=== PATIENT | female | born 2000 | race Caucasian/White ===

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

== ENCOUNTER 2020-03-12 03:47 | Outpatient (CLI) | payer MEDICAID, SELFPAY ==
[2020-03-12 14:11] LABS: Kit/Specimen SENT
[2020-03-12 14:14] LABS: Abs Immature Grans 0.03 k/cumm (0.0-0.09); Absolute Basophil Count 0.02 k/cumm (0.0-0.2); Absolute Eosinophil Count 0.15 k/cumm (0.0-0.7); Absolute Monocyte Count 0.68 k/cumm (0.11-0.7); Absolute Neutrophil Count 8.78 k/cumm (1.2-6.7); Basophils % 0.2; Eosinophils % 1.3; HCT 37.8 % (36.0-46.0); HGB 12.9 g/dL (12.0-15.5); Immature Grans % 0.3 %; Lymphocytes % 18.5; Mean Corp. HGB Concentration 34.1 g/dL (32.0-36.0); Mean Corpuscular Hemoglobin 29.9 pg (27.0-33.0); Mean Corpuscular Volume 87.7 fL (80-95); Mean Platelet Volume 11.3 fL (8.0-11.0); Monocytes % 5.7; Platelet Count 295 x1000/uL (130-400); RBC 4.31 m/cumm (4.00-5.20); RBC Distribution Width 13.2 % (11.7-14.6); White Blood Cell Count 11.87 k/cumm (4.4-10.8)
[2020-03-12 15:31] LABS: *AMPHETAMINES SCREEN URINE Negative (Negative); *BARBITURATES SCREEN URINE Negative (Negative); *BENZODIAZEPINES SCREEN URINE Negative (Negative); Cannabinoids THC Negative (Negative); Cocaine Screen,Urine Negative (Negative); METHADONE URINE SCREEN Negative (Negative); OPIATES URINE SCREEN Negative (Negative)
[2020-03-12 15:38] LABS: Tricyclic Antidepressants Negative (Negative)
[2020-03-13 11:51] LABS: Rubella IgG Ab (UVM) Positive (See Note); Varicella IgG Antibody Positive (See Note)
[2020-03-13 12:52] LABS: HIV-1/2 Ag & Ab Screen Negative (Negative); Hepatitis C Ab w Rflx HCV PCR Negative (Negative)
[2020-03-13 13:46] LABS: Chlamydia Result Negative (Negative); GC Result Negative (Negative)
[2020-03-13 13:52] LABS: Hepatitis B Surface Ag Negative (Negative)
[2020-03-14 12:09] LABS: Syphilis Total Ab w/Reflex Nonreactive (Nonreactive)
[2020-03-18 01:08] LABS: Result Summary NEGATIVE; Specimen WB Whole Blood
[2020-03-23 01:53] LABS: Buprenorphine Negative
== END 2020-03-12 04:07 ==
PROVIDERS: PCP Pediatrics; Visit Provider Advanced Practice Midwife
DX: Z34.91 Encounter for supervision of normal pregnancy, unspecified, first trimester (principal); Z36.89 Encounter for other specified antenatal screening; Z11.4 Encounter for screening for human immunodeficiency virus [HIV]; Z11.59 Encounter for screening for other viral diseases; Z01.84 Encounter for antibody response examination; Z11.3 Encounter for screening for infections with a predominantly sexual mode of transmission
CPT/HCPCS: 36415; 80307; 86787; 86803; 86850; 86900; 86901; 87340; 87389; 87491; 87591; 81220; 85025; 86762; 86780; 87086

== ENCOUNTER 2020-04-14 21:03 | Outpatient (REF) | payer MEDICAID, SELFPAY | END 2020-04-14 21:23 | LOC: LBN 21:03 | PROVIDERS: PCP Pediatrics; Visit Provider Advanced Practice Midwife | DX: N89.8 Other specified noninflammatory disorders of vagina (principal) | CPT/HCPCS: 87480; 87510; 87660 ==

== ENCOUNTER 2020-05-12 00:23 | Outpatient (CLI) | payer MEDICAID, SELFPAY ==
--- NOTE | 2020-05-12 07:30 | DI.US_ITS ---
EXAM: US OB 2-3 TRIMESTER CLINICAL HISTORY: ,Z34.90 TECHNIQUE: Ultrasound performed using standard protocol. COMPARISON: US US OB DARIO weight from 08/20/2018 FINDINGS: Ob ultrasound was performed utilizing 2nd trimester protocol. biometry is consistent with gest ational age of 20 weeks 1 day and an EDC of September 28, 2020. Placenta is anterior with no evidence of placenta previa. There is visually a normal quantity of amn iotic fluid. anomaly screen is within normal limits as per the attached checklist. heart rate is 143 BPM. IMPRESSION: DATA REPOSITORY:
== END 2020-05-12 00:43 ==
PROVIDERS: PCP Pediatrics; Visit Provider Advanced Practice Midwife
DX: Z34.92 Encounter for supervision of normal pregnancy, unspecified, second trimester (principal)
CPT/HCPCS: 76805

== ENCOUNTER 2020-07-07 02:42 | Outpatient (CLI) | payer MEDICAID, SELFPAY ==
[2020-07-07 12:30] LABS: HGB 12.5 g/dL (11.2-15.7); MCH 31.1 pg (27.0-33.0); MCHC 32.9 % (32.0-36.0); MCV 94.5 fL (80-95); Platelet Count 259 10^3/uL (130-400); RBC 4.02 10^6/uL (3.93-5.22); RDW 13.1 % (11.7-14.6); RDW-SD 45.3 fL; WBC 13.33 10^3/uL (4.4-10.8)
[2020-07-07 12:41] LABS: Glucose,1 Hr (Glucola) 169 mg/dL (80-140)
== END 2020-07-07 03:02 ==
PROVIDERS: PCP Pediatrics; Visit Provider Advanced Practice Midwife
DX: Z34.93 Encounter for supervision of normal pregnancy, unspecified, third trimester (principal); Z3A.28 28 weeks gestation of pregnancy
CPT/HCPCS: 36415; 82950; 85027

== ENCOUNTER 2020-07-20 01:09 | Outpatient (CLI) | payer MEDICAID, SELFPAY ==
[2020-07-20 13:12] LABS: Glucose 1 Hour 185 mg/dL
[2020-07-20 15:24] LABS: Glucose 3 Hour 184 mg/dL
--- NOTE | 2020-07-23 12:45 | W.DIABETESNO ---
Date of service: 07/23/20 Time of Service: 12:45 Diabetes Note NOTE: Spoke with Bella on phone. She reports able to use glucometer and readings wnl. She did not want to discuss diet and GDM. Provided her with my contact info, will meet in person at next [facility] visit on 08/04/20. Time Spent in Nutritional Counseling and Treatment: 5 min on phone
== END 2020-07-20 01:29 ==
PROVIDERS: PCP Pediatrics; Visit Provider Advanced Practice Midwife
DX: R73.09 Other abnormal glucose (principal)
CPT/HCPCS: 36415; 82951

== ENCOUNTER 2020-07-29 11:22 | Outpatient (CLI) | payer MEDICAID, SELFPAY ==
[2020-07-29 15:29] VITALS: BP 100/65; PULSE 115
[2020-07-29 15:43] VITALS: BP 100/65; PULSE 77; TEMP 36.8
[2020-07-29 16:03] VITALS: BP 100/65; PULSE 77; TEMP 36.8
--- NOTE | 2020-07-29 16:03 | W.OBNST ---
Date of service: 07/29/20 Time of Service: 16:03 NST Evaluation Reason for NST Reasons for Nonstress Test: LABOR Gestational Age Gestational Age in Weeks and Days: 31 Weeks and 1Days Test and Monitor Explained Test/Monitor Explained: Test Explained, Monitor Explained and Patient Verbalized Understanding Vital Signs Blood Pressure: 100/65 Pulse: 77 Temperature: 98.2 F NST Information Date on Monitor: 07/29/20 Time on Monitor: 15:25 Date off Monitor: 07/29/20 Time off Monitor: 16:02 Total Time on Monitor: 37 NST Interventions: PO Hydration Contraction Frequency: 0 NST Evaluation Patient States Movement: Decreased FHR Baseline: 145 Variability: Moderate 6-25 bpm Accelerations: 15x15 Decelerations: None NST Results: Reactive Note NST Note NST Reviewed and Verified by: Julia Johnson
[2020-07-29 16:24] LABS: ROM Plus Negative
== END 2020-07-29 16:36 | disposition home or self-care (01) ==
LOC: BCD 11:24 → OBS 14:34
PROVIDERS: PCP Pediatrics; Visit Provider Advanced Practice Midwife
DX: O60.03 Preterm labor without delivery, third trimester (principal); Z3A.31 31 weeks gestation of pregnancy
CPT/HCPCS: 59025; 84112

== ENCOUNTER 2020-08-04 10:36 | Outpatient (CLI) | payer MEDICAID, SELFPAY ==
--- NOTE | 2020-08-04 10:00 | NS.NUTBLAN_ITS ---
Met with Bon in [facility] for initial Diabetic Education session. FADI 09/29/20. Failed 1 hour glucola (169mg/dl) with strong family history of IDDM. Weight gain wnl. Blood sugar log indicates elevated post prandial BS (ranging from 101-232 mg/dl), fasting levels <95mg/dl. MD reviewed BS/Diet log and determined elevated BS mostly due to poor diet choices. Bon to return again next week. If unable to improve post prandial levels, will need bolus insulin with meals. Diet record indicates high intakes of simple carbohydrates. DESCRIPTION/ASSESSMENT: INTERVENTION: Provided education on DM including Hyper/hypoglycemia s/s with action plan for each scenario. Definition and types of CHO with examples, CHO counting, DASH diet materials, DM meal planning and label reading literature. Provided a blood sugar and food record chart and materials to reiterate CHO counting techniques. Reviewed desirable BG levels with with food choices and portions for optimal outcomes. Provided contact information for this RD and encouraged to call with any f/u questions r/t to DM self management. Plan: Bon will email chief writer with food log/BS log in 2 days. Provided education material with meal plans. Will follow up next week for follow up.
== END 2020-08-04 10:56 ==
PROVIDERS: PCP Pediatrics; Visit Provider Nurse Practitioner Family
DX: O24.410 Gestational diabetes mellitus in pregnancy, diet controlled (principal); Z71.3 Dietary counseling and surveillance
CPT/HCPCS: 97802

== ENCOUNTER 2020-08-12 14:28 | Observation (INO) | payer MEDICAID, SELFPAY ==
[2020-08-12] VITALS (7 sets, daily range): BP systolic 109–131; BP diastolic 61–73; PULSE 96–118; RESP 18; TEMP 36.8
[2020-08-12] MEDS: Lactated Ringers 1,000 ML 1000 ML IV (15:16)
[2020-08-12 15:19] LABS: ROM Plus Negative
[2020-08-12] MEDS: Lactated Ringers 500 ML IV (16:18)
--- NOTE | 2020-08-12 16:21 | HPE_ITS ---
Date of service: 08/12/20 Time of Service: 16:21 Assessment and Plan Assessment and plan (1) Risk of labor in third trimester: Status: Acute Assessment and plan: A: 19 yo @ 33 wks, GDM currently being monitored discomforts of vs PTL, r/o UTI, r/o dehydration UA bedside +ketonuria, neg otherwise NST is reactive, irregular contractions per toco P: Recheck cvx in 2-3 hrs by RN as she performed initial exam IV hydration with lactated ringers EFM, observe uterine activity regular diet without sweets CC Urine for C&S fFN deferred after RN's vaginal exam ROM+ is negative Has ultrasound appt in 2 days for S<D, GDM OB-HPI Labor/Delivery History of Present Illness Reason for Visit: R/O PRE TERM LABOR Chief Complaint: Suspected Rupture of Membranes , Associated Signs and Symptoms of Suspected ROM: increased vaginal discharge ; Maternal Discomfort , Associated Signs and Symptoms of Maternal Discomfort: back pain, low abd cramps, increased vaginal discharge, decreased movement ; Decreased Movement , Associated Signs and Symptoms of Decreased Movement: DFM ; Other (Pt reports discomfort all day long, spends her day at home alone with her toddler. Pt called with reports of symptoms @ 1100, advised to come to , pt stated she had to find a ride and childcare, she arrived at 1430.). FADI Calculator Estimated Delivery Date Method Current WG Current Estimate 09/29/20 Ultrasound #1 33w 1d Other Estimates 09/23/20 LMP (Certain) 34w 0d History of Present Expected Delivery Route/Plan - CNM FOB/ - David Hernandez (their second together) Would like water BB no circ Desires immediate Nexplanon Specific Issues/Plan 1. Nausea with vomiting, Zofran 4 mg TID Rx'ed 02/11/20 2. [place] and CF testing drawn 2a. CF carrier screen and [place] negative pt informed 03/20/20 advised to make decision re afp by al 2b. Declines single marker AFP 05/12/20 3. Constipation - resolved 05/12/20 4. Elevated glucola @ 28 wks = 169, 4a. Gestationl Diabetes -3 hr GTT 66. 185, 207, 184 - referred to nutrition, glucometer ordered Review of Systems All systems reviewed & are unremarkable except as noted in HPI and below Respiratory Respiratory: Reports system reviewed and no additional complaints, except as documented Gastrointestinal Comments: reports lower abd cramping Genitourinary Comments: increased watery vaginal discharge today, no itching, recently treated for vaginal yeast Musculoskeletal Comments: reports lower and mid back pain, especially on right side [facility] Medical History (Updated 08/12/20 @ 16:38 by Julia Johnson) Acne ADHD (attention deficit hyperactivity disorder) (04/19/12) Family History (Updated 03/12/20 @ 13:03 by Kell Rossi CNM) Mother Mental disorder depression/anxiety Father Essential hypertension Hyperlipidemia Mental disorder depression/anxiety Diabetes Paternal Grandmother Diabetes Social History (Updated 06/14/18 @ 13:46 by Tiana Caldwell RN) Smoking/Tobacco Use Status: Never Smoking risk assessment performed?: Yes Drug use: Never Seatbelt use: always Helmet use: Yes Drive intox or ride w/intox salesperson driver: No Working smoke detector in home: Yes Fire extinguisher in home: Yes Carbon monox detector in home: Yes Firearms in home: Yes Firearms unloaded and locked: Yes Victim of physical abuse: No Victim of emotional abuse: No Victim of sexual abuse: No History History 2 Para 1 Hx # Term Pregnancies 1 Multiple births 0 Hx # Pregnancies 0 Ectopic pregnancies 0 AB induced 0 Hx Number of Living Children 1 AB spontaneous 0 Past Pregnancies Del. Date GA/Weeks # Outcome Route Wgt Sex Labor Lgth Anesthes ia Location Prov Complic 09/25/18 37 No Successful vaginal 7 lb 1 oz Male 6hrs 13 min. regio nal Julia Johnson CNM Delivery Date: 09/25/18 Patient had IV sedation, PROM, Median episiotomy for prolonged and deepa ble decel; loose nuchal cord x2; cord noted to be 3 feet long Lisa Dyer Home Medications and Allergies Home Medications Medication Instructions Recorded Confirmed Type prenat.vits,pollo,nve-lqaj-ycuok 1 tab PO DAILY 01/22/20 08/12/20 History blood sugar diagnostic #100 ea 07/21/20 08/12/20 Rx blood-glucose meter #1 ea 07/21/20 08/12/20 Rx lancets 28 gauge #100 ea 07/21/20 08/12/20 Rx fluconazole 150 mg tablet 150 mg PO ONCE #1 tab 08/04/20 08/12/20 Rx Allergies Allergy/AdvReac Type Severity Reaction Status Date / Time No Known Allergies Allergy Verified 08/04/20 09:27 Exam Physical Exam Vital signs: Temp Pulse BP 98.2 F 104 H 117/68 08/12/20 14:41 08/12/20 16:03 08/12/20 16:03 Vital Signs Reviewed: Yes Constitutional Constitutional: mild distress, thin and cooperative Detailed Labor and Delivery Exam Laird Score: Cervical Points Exam 0 1 2 3 Dilation Closed 1-2cm 3-4 cm 5-6cm Effacement 0-30% 40-50% 60-70% 80% Consistency Firm Medium Soft Station -3 -2 -1,0 +1,+2 Position Posterior Mid Anterior Amniotic Membrane Status: Intact (ROM+ neg) ROM Plus: Negative Contraction Frequency(min): irregular Contraction Duration(sec): 30-60 seconds Contraction Intensity: Mild Fetus A Heart Rate Baseline: 145 Monitor Accelerations: 15 X 15 Monitor Decelerations: None Variability: Moderate (6-25 BPM) Categories: Category I HEENT Exam HEENT Exam: Normal Neck Exam Neck Exam: Normal Chest/Brest/Axilla Exam Chest Exam: Normal Breast Exam Breast Exam: Not Done Respiratory Exam Respiratory Exam: Normal Cardiovascular Exam Cardiovascular Exam: Normal Abdominal Exam Abdominal Exam: Normal (Gravid, soft, nontender) Exam Exam: Normal Extremities Exam Extremities Exam: Normal Back/Spine/Pelvis Exam Back Exam: Normal (mild tenderness in CVA, right side) Skin Exam Skin Exam: Normal Neurological Exam Neurological Exam: Normal Psychiatric Exam Psychiatric Exam: Normal Results Results Blood Type: O+ Rubella Status: Immune Varicella Immunity: Immune Risk Assessment Risk for Shoulder Dystocia Historical/Initial OB: NEGATIVE FOR: Pelvic Abnormality, Pre- BMI>30, Previous Shoulder Dystocia or Previous Macrosomia Increased Risk?: No Risk for Pre-Eclampsia Daily Dose ASA Indicated: No Yes, if one or more: NEGATIVE FOR: Hx Pre-E/Gest HTN, Chronic HTN, Multiple Gestation, Pre-gestational DM, Renal Disease, Systemic Lupus or APA Syndrome Yes, if 2 or more: NEGATIVE FOR: Nulliparity, Age>= 35 yrs, >10yr btwn pregnancies, BMI>30, ethinicty, Mother/Sister w/ Pre-E or Previous IUGR Risk for Post- Hemorrhage Initial: NEGATIVE FOR: Multiple Gestation, Previous PPH, Known Clotting Defici ency, Grand Multiparity or Anticoagulation At Risk?: No Risks Reviewed Risks Reviewed Upon Admission: Yes
[2020-08-12] MEDS: Acetaminophen 325 MG TAB 650 MG PO (16:29)
--- NOTE | 2020-08-12 16:51 | W.OBNST ---
Date of service: 08/12/20 Time of Service: 16:51 NST Evaluation Reason for NST Reasons for Nonstress Test: DECREASED MOVEMENT Gestational Age Gestational Age in Weeks and Days: 33 Weeks and 1Days Test and Monitor Explained Test/Monitor Explained: Test Explained, Monitor Explained and Patient Verbalized Understanding Vital Signs Blood Pressure: 131/73 Pulse: 104 Temperature: 98.2 F Urine Results Urine Protein: Negative Urine Ketones: Positive Urine Glucose: Negative Urine Blood: Negative NST Information Date on Monitor: 08/12/20 Time on Monitor: 14:35 Date off Monitor: 08/12/20 Time off Monitor: 15:21 Total Time on Monitor: 46 NST Interventions: PO Hydration and IV Fluids NST Evaluation Patient States Movement: Decreased FHR Baseline: 135 Variability: Moderate 6-25 bpm Accelerations: 15x15 Decelerations: None NST Results: Reactive Note NST Note NST Reviewed and Verified by: Julia Johnson
--- NOTE | 2020-08-12 18:21 | W.PM.PROGNOT ---
Date of Service Date of service: 08/12/20 Time of Service: 18:21 Assessment and Plan Assessment and plan (1) Risk of labor in third trimester: Status: Acute Assessment and plan: A: 33 wk multipara, GDM, underweight, constipation, contractions wellbeing verified P: Discussed pt status with Dr. Marrero Will recheck cvx in 3 hrs (@ 1999) Will give dulcolax rectal suppository now Continue IV hydration Urine sent for C&S Subjective Subjective Patient reports: still having pain, nausea and afebrile Interval history since last seen: Pt had some salad for dinner and then felt nauseated, declines anti-emetic medication I'm fine, offered saltine crackers to help settle her stomach. Pt is reporting continuing lower abd pain, some back pain, slight improvement since taking tylenol, also states she has had some sharp pains in her vagina since arrival. Reports need for BM but unable to go when sits on toilet, yet denies recent constipation. Objective Objective Narrative Objective Narrative: Category 1 tracing Irregular but persistent contractions noted per toco, sometimes every 2-3 minutes, sometimes space to every 5-7 minutes. SVE by RN at 1700 and finds possible minor cvx change from previous exam, SVE repeated by CNM for 1.5/thick, soft and posterior, vtx -3, intact membranes, rectum full with firm stool Urine is now cleared of ketones per dipstick @ 1800 Pt has received 2 liters of LR, 3rd liter infusing @ 250 ml/hr Pt ate very little for dinner, no vomiting, reports nausea but declines medication offered
[2020-08-12] MEDS: Bisacodyl 10 MG SUPP PR (18:31)
[2020-08-12] MEDS: Lactated Ringers 1,000 ML 250 ML IV (18:46)
--- NOTE | 2020-08-12 20:17 | DSE_ITS ---
Date of service: 08/12/20 Time of Service: 20:17 DS: Diagnosis Discharge Diagnosis (1) Risk of labor in third trimester: Status: Acute Discharge Plan Disposition Patient Disposition: HOME Condition: Good Discharge Details Reason For Visit: R/O PRE TERM LABOR Admit Date/Time: 08/12/20 14:28 Admit Provider: Julia Johnson Attending Provider: Julia Johnson Primary Care Provider: Jimy Patel Hospital Course Hospital Course: observation 6 hours for labor symptoms, PTL ruled out, discharged home with instructions, f/up in 2 days Home Meds and New Rx's Prescriptions: No Action fluconazole [Diflucan] 150 mg tablet 150 mg PO ONCE Qty: 1 RF: 3 prenat.vits,pollo,[id number]-[id number] Tablet 1 tab PO DAILY RF: 0 (DME) FreeStyle Lite Strips Strip See Rx Instructions .ROUTE .MEDSUPPLY Qty: 100 RF: 2 (DME) lancets [FreeStyle Lancets] 28 gauge misc See Rx Instructions .ROUTE .MEDSUPPLY Qty: 100 RF: 2 (DME) blood-glucose meter [FreeStyle Lite Meter] Kit See Rx Instructions .ROUTE .MEDSUPPLY Qty: 1 RF: 0 Discharge Instructions Additional Instructions: Please keep your ultrasound and doctor appointment this Monday, continue to record your blood sugar 4 times per day and bring the record with you on Monday. Stand Alone Forms: Center Observation Activity:: Activity as Tolerated Equipment/Supplies:: No Equipment Needed Diet:: Normal Diet Discharge Orders Discharge Orders: Discharge Order (Routine); Ordered 08/12/20 Ordered By: Julia Johnson OB:DS Summary Contraception Discussed Contraception Discussed: No, Status at Discharge Functional status at discharge: independent ambulation Overall status at discharge: patient is back to baseline Mental Status: mental status grossly normal Speech and Movement: speech and movement normal Mood: congruent mood Affect: normal affect Time Spent with Patient providing and/or coordinating discharge services: Greater than 30 minutes Exam Physical Exam Vital signs: Temp Pulse Resp BP 98.2 F 96 H 18 109/61 08/12/20 19:33 08/12/20 19:33 08/12/20 19:33 08/12/20 19:33 Constitutional Constitutional: mild distress, thin and cooperative HEENT Exam HEENT Exam: Normal Neck Exam Neck Exam: Normal Respiratory Exam Respiratory Exam: Normal Cardiovascular Exam Cardiovascular Exam: Normal Back/Spine/Pelvis Exam Back Exam: Normal (mild tenderness in CVA, right side) Skin Exam Skin Exam: Normal Neurological Exam Neurological Exam: Normal Psychiatric Exam Psychiatric Exam: Normal [facility] Medical History (Updated 08/12/20 @ 16:38 by Julia Johnson) Acne ADHD (attention deficit hyperactivity disorder) (04/19/12) Family History (Updated 03/12/20 @ 13:03 by Kell Rossi CNM) Mother Mental disorder depression/anxiety Father Essential hypertension Hyperlipidemia Mental disorder depression/anxiety Diabetes Paternal Grandmother Diabetes Social History (Updated 06/14/18 @ 13:46 by Tiana Caldwell RN) Smoking/Tobacco Use Status: Never Smoking risk assessment performed?: Yes Drug use: Never Seatbelt use: always Helmet use: Yes Drive intox or ride w/intox lokie driver: No Working smoke detector in home: Yes Fire extinguisher in home: Yes Carbon monox detector in home: Yes Firearms in home: Yes Firearms unloaded and locked: Yes Victim of physical abuse: No Victim of emotional abuse: No Victim of sexual abuse: No History History 2 Para 1 Hx # Term Pregnancies 1 Multiple births 0 Hx # Pregnancies 0 Ectopic pregnancies 0 AB induced 0 Hx Number of Living Children 1 AB spontaneous 0 Past Pregnancies Del. Date GA/Weeks # Outcome Route Wgt Sex Labor Lgth Anesthes ia Location Prov Complic 09/25/18 37 No Successful vaginal 7 lb 1 oz Male 6hrs 13 min. regio nal Julia Johnson CNM Delivery Date: 09/25/18 Patient had IV sedation, PROM, Median episiotomy for prolonged and audible decel; loose nuchal cord x2; cord noted to be 3 feet long Lisa Dyer DS: Data Vitals/I&O Vitals and I&O: Vital Signs Temperature 98.2 F 08/12/20 19:33 Pulse 96 H 08/12/20 19:33 Pulse Rhythm Regular 08/12/20 19:50 Respiratory Rate 18 08/12/20 19:33 Blood Pressure 109/61 08/12/20 19:33 Oxygen Delivery Method Room Air 08/12/20 14:41 Oxygen Flow Rate 0 08/12/20 14:41 Pain Level 3 08/12/20 17:13 Intake & Output 08/11/20 08/12/20 08/12/20 23:59 11:59 23:59 Intake Total 1500 / 1500 Output Total 1000 / 1000 Balance 500 / 500 Weight 117 lb Intake: IV 1500 / 1500 Output: Urine 1000 / 1000 Data Completed and Pending Labs on day of discharge: Labs from last 24 hours 08/12/20 14:43 Membranes Rupture Negative 08/12/20 17:01 Urine - Clean Catch Urine Culture - Pending Preliminary micro results at discharge 08/12/20 17:01 Urine Culture - Pending Urine - Clean Catch
--- NOTE | 2020-08-14 10:57 | TELEFU_ITS ---
Date of service: 08/14/20 Time of Service: 10:57 Nutritional Follow up NOTE: Met with Bella Cortez in [facility] today. She had elevated OGTT of 169 md/dl last week. Blood sugar log indicates fasting BS <95mg/dl, some mildly elevated post prandial levels but overall GDM in good control with diet. Reviewed importance of following lower carb meal plan with emphasis on complex carbs, lean protein and non starchy vegetables, encouraged exercise- walking daily 15- 20 minutes. Will continue to support and follow. Time Spent in Nutritional Counseling and Treatment: 5 min
== END 2020-08-12 21:10 | disposition home or self-care (01) ==
PROVIDERS: Admitting Provider Advanced Practice Midwife; PCP Pediatrics; Visit Provider Advanced Practice Midwife
DX: O36.8130 Decreased fetal movements, third trimester, not applicable or unspecified (principal); Z3A.33 33 weeks gestation of pregnancy; O60.03 Preterm labor without delivery, third trimester; O24.419 Gestational diabetes mellitus in pregnancy, unspecified control; O26.13 Low weight gain in pregnancy, third trimester; O99.613 Diseases of the digestive system complicating pregnancy, third trimester; O26.893 Other specified pregnancy related conditions, third trimester; K59.00 Constipation, unspecified; R82.4 Acetonuria
CPT/HCPCS: 59025; 84112; 96360; 96361; 99225; 87086; G0378

== ENCOUNTER 2020-08-14 03:53 | Outpatient (CLI) | payer MEDICAID, SELFPAY ==
--- NOTE | 2020-08-14 06:00 | DI.US_ITS ---
EXAM: US OB DARIO WEIGHT CLINICAL HISTORY: S<D at 32 wks, interval growth check,O24.419,O26.843. TECHNIQUE: Transabdominal obstetrical ultrasound performed. COMPARISON: US US OB 2-3 TRIMESTER from 05/12/2020 FINDINGS: Transabdominal obstetrical ultrasound performed. FINDINGS: Number of fetuses: One. position: Cephalic. Placental location: Anterior. No evidence of previa. BIOMETRIC DATA: EFW: 2064 grms 25% Composite Age: 32 weeks 6 days EDC: 10/03/2020 Heart Rate: 135BPM Amniotic fluid index: 13.3 cm. Visually, amount of fluid is within normal limits. IMPRESSION: 1. Single live intrauterine gestation as above. 2. Estimated weight is 2064gms. 3. Amniotic fluid index is 13.3 cm. Visually within normal limits. DATA REPOSITORY:
== END 2020-08-14 04:13 ==
PROVIDERS: PCP Pediatrics; Visit Provider Advanced Practice Midwife
DX: O26.843 Uterine size-date discrepancy, third trimester
CPT/HCPCS: 76816

== ENCOUNTER 2020-08-24 15:20 | Observation (INO) | payer MEDICAID, SELFPAY ==
[2020-08-24 12:43] VITALS: BP 103/63; PULSE 96; RESP 16; TEMP 37.2
[2020-08-24] MEDS: Betamet Acet/Betamet Na Ph Inj. 30 MG/5 ML 12 MG IM (13:45)
[2020-08-24 13:50] VITALS: BP 117/62; PULSE 112; TEMP 36.9
[2020-08-24 13:53] VITALS: BP 117/62; PULSE 112
--- NOTE | 2020-08-24 13:55 | HPE_ITS ---
Date of service: 08/24/20 Time of Service: 13:56 Assessment and Plan Assessment and plan (1) Risk of labor in third trimester: Status: Acute Assessment and plan: A: 19 yo ; 34+6 wks, not in labor though prodromal, intact membranes, category 1 tracing with reactive NST, mild ketonuria P: celestone 12 mg today and repeat in 24 hrs PO hydration now & regular diet Send VPS, GC/CT and GBS Recheck cvx in 2 hrs, will discharge to home if no cervical change OB-HPI Labor/Delivery History of Present Illness Reason for Visit: NST, SSE for r/o ROM, obtain cultures, r/o PTL Chief Complaint: Uterine Contractions (since 729 this morning, pt states she is so ready to just have this baby. Took 2 tylenol prior to arrival in . Denies recent coitus, bleeding, nausea or vomiting.); Suspected Rupture of Membranes , Associated Signs and Symptoms of Suspected ROM: reports sticky vaginal mucous last night, thinner and occasional trickle since 729 this morning, began right when had left for work.. FADI Calculator Estimated Delivery Date Method Current WG Current Estimate 09/29/20 Ultrasound #1 34w 6d Other Estimates 09/23/20 LMP (Certain) 35w 5d History of Present Expected Delivery Route/Plan - CNM FOB/ - David Hernandez (their second together) Would like water BB no circ Desires immediate Nexplanon Specific Issues/Plan Has normal being examination at this 1. Nausea with vomiting, Zofran 4 mg TID Rx'ed 02/11/20 2. [place] and CF testing drawn 2a. CF carrier screen and [place] negative pt informed 03/20/20 advised to make decision re afp by nv.al 2b. Declines single marker AFP 05/12/20 3. Constipation - resolved 05/12/20 4. Gestationl Diabetes -3 hr GTT 66. 185, 207, 184. 08/14/20: Fasting CBGs Nl. Rare 1hr PP over 140. No Rx needed. Assessment: History Reviewed & Current Review of Systems All systems reviewed & are unremarkable except as noted in HPI and below PFSH Medical History (Updated 08/12/20 @ 16:38 by Julia Johnson) Acne ADHD (attention deficit hyperactivity disorder) (04/19/12) Family History (Updated 03/12/20 @ 13:03 by Kell Rossi CNM) Mother Mental disorder depression/anxiety Father Essential hypertension Hyperlipidemia Mental disorder depression/anxiety Diabetes Paternal Grandmother Diabetes Social History (Updated 06/14/18 @ 13:46 by Tiana Caldwell RN) Smoking/Tobacco Use Status: Never Smoking risk assessment performed?: Yes Drug use: Never Seatbelt use: always Helmet use: Yes 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 Date GA/Weeks # Outcome Route Wgt Sex Labor Lgth Anesthes ia Location Prov Complic 09/25/18 37 No Successful vaginal 7 lb 1 oz Male 6hrs 13 min. regio nal Julia Johnson CNM Delivery Date: 09/25/18 Patient had IV sedation, PROM, Median episiotomy for prolonged and audible decel; loose nuchal cord x2; cord noted to be 3 feet long Lisa Dyer Home Medications and Allergies Home Medications Medication Instructions Recorded Confirmed Type prenat.vits,pollo,[id number] 1 tab PO DAILY 01/22/20 08/21/20 History blood sugar diagnostic #100 ea 07/21/20 08/21/20 Rx blood-glucose meter #1 ea 07/21/20 08/21/20 Rx lancets 28 gauge #100 ea 07/21/20 08/21/20 Rx Allergies Allergy/AdvReac Type Severity Reaction Status Date / Time No Known Allergies Allergy Verified 08/21/20 15:37 Exam Physical Exam Vital signs: Temp Pulse Resp BP 99.0 F 112 H 16 117/62 08/24/20 12:43 08/24/20 13:53 08/24/20 12:43 08/24/20 13:53 Vital Signs Reviewed: Yes Constitutional Constitutional: no acute distress, thin and cooperative Detailed Labor and Delivery Exam Dilation: 1.5 Effacement (%): 60 station: -2 Cervix position: mid Consistency: soft Amniotic Membrane Status: Intact Pooling: Negative Nitrazine: Negative Ferning: Absent Monitor Mode: External Contraction Frequency(min): irregular Contraction Intensity: Mild Fetus A Heart Rate Baseline: 130 Monitor Accelerations: 15 X 15 Presentation: Cephalic Categories: Category I Breast Exam Breast Exam: Not Done Respiratory Exam Respiratory Exam: Normal Cardiovascular Exam Cardiovascular Exam: Normal Abdominal Exam Abdominal Exam: Normal Exam Exam: Normal (SSE performed, GC/CT, VPS and GBS collected) Detailed Exam Perineum Description: Normal Extremities Exam Extremities Exam: Normal Back/Spine/Pelvis Exam Pelvis Adequate: Yes Skin Exam Skin Exam: Normal Risk Assessment Risk for Shoulder Dystocia Historical/Initial OB: NEGATIVE FOR: Pelvic Abnormality, Pre- BMI>30, Previous Shoulder Dystocia or Previous Macrosomia Increased Risk?: No Risk for Pre-Eclampsia Daily Dose ASA Indicated: No Yes, if one or more: NEGATIVE FOR: Hx Pre-E/Gest HTN, Chronic HTN, Multiple Gestation, Pre-gestational DM, Renal Disease, Systemic Lupus or APA Syndrome Yes, if 2 or more: NEGATIVE FOR: Nulliparity, Age>= 35 yrs, >10yr btwn pregnancies, BMI>30, ethinicty, Mother/Sister w/ Pre-E or Previous IUGR Risk for Post- Hemorrhage Initial: NEGATIVE FOR: Multiple Gestation, Previous PPH, Known Clotting Deficiency, Grand Multiparity or Anticoagulation At Risk?: No Risks Reviewed Risks Reviewed Upon Admission: Yes
--- NOTE | 2020-08-24 14:13 | W.OBNST ---
Date of service: 08/24/20 Time of Service: 14:13 NST Evaluation Reason for NST Reasons for Nonstress Test: OTHER, SEE COMMENT Reason for NST Other: Rule out labor Gestational Age Gestational Age in Weeks and Days: 34 Weeks and 6Days Test and Monitor Explained Test/Monitor Explained: Test Explained, Monitor Explained and Patient Verbalized Understanding Vital Signs Blood Pressure: 117/62 Pulse: 112 Temperature: 98.4 F Urine Results Urine Protein: Negative Urine Ketones: Positive Urine Glucose: Negative Urine Blood: Negative NST Information Date on Monitor: 08/24/20 Time on Monitor: 12:00 Time off Monitor: 12:20 NST Interventions: PO Hydration and Meal Given NST Evaluation Patient States Movement: Present FHR Baseline: 135 Variability: Moderate 6-25 bpm Accelerations: 15x15 Decelerations: None NST Results: Reactive Note NST Note NST Reviewed and Verified by: Julia Johnson
[2020-08-24 14:14] VITALS: BP 117/62; PULSE 112; TEMP 36.9
--- NOTE | 2020-08-24 15:23 | W.PM.PROGNOT ---
Date of Service Date of service: 08/24/20 Time of Service: 15:23 Assessment and Plan Assessment and plan (1) Risk of labor in third trimester: Status: Acute Assessment and plan: Receiving course of celestone Transportation concerns and maternal anxiety Risk for PTL based on cvx exam, uterine activity/irritability, hx delivery @ 37 wks GDM diet controlled P: Will observe pt overnight for PTL celestone injection tomorrow Plan discharge to home after 2nd injection if no cervical change Regular diet without sweets, FHT auscultation with vital signs (2) Gestational diabetes: Status: Acute Qualifiers: Gestational diabetes mellitus control: diet-controlled Trimester: third trimester Qualified Code(s): O24.410 - Gestational diabetes mellitus in , diet controlled Subjective Subjective Patient reports: still having pain, tolerating liquids well, tolerating a regular diet and voiding w/o difficulty Interval history since last seen: Pt lives 1 hour away, transportation and childcare are not easily available to her, she reports that she is uncomfortable physically with pelvic pain and pressure all the time, is worried about being home alone and not sure she can get back to [facility] tomorrow for her 2nd celestone injection. Exam Narrative Exam Narrative: Cvx rechecked and is unchanged from previous exam @ 1230 today, Objective Last Vital Signs Temp 99.0 F 08/24/20 12:43 Pulse 112 H 08/24/20 13:53 Resp 16 08/24/20 12:43 BP 117/62 08/24/20 13:53 Laboratory Results - last 24 hr Reviewed Pertinent PMH: Yes Objective Narrative Objective Narrative: Pt resting in bed, poor appetite demonstrated though pt denies nausea. Category 1 tracing, irregular and infrequent contractions, vss, afebrile, normotensive
[2020-08-24 16:00] VITALS: BP 111/75; PULSE 114; RESP 20; TEMP 36.9; O2SAT 97
[2020-08-24] MEDS: Acetaminophen 325 MG TAB 650 MG PO (16:12)
[2020-08-24 20:09] VITALS: BP 115/70; PULSE 100; RESP 20; TEMP 36.8
[2020-08-25 07:20] VITALS: BP 116/66; PULSE 106; RESP 20; TEMP 36.8; O2SAT 97
[2020-08-25] MEDS: Docusate Sodium 100 MG CAP PO (07:35)
[2020-08-25] MEDS: Acetaminophen 325 MG TAB 650 MG PO (07:35)
[2020-08-25] MEDS: Prenatal Multivitamin w/CA,FE TAB 1 TAB PO (07:35)
[2020-08-25 09:27] LABS: Hemoglobin A1C 4.9 % (<5.7)
[2020-08-25 09:29] VITALS: BP 110/56; PULSE 118
--- NOTE | 2020-08-25 09:56 | W.PM.PROGNOT ---
Date of Service Date of service: 08/25/20 Time of Service: 09:57 Assessment and Plan Assessment and plan (1) Risk of labor in third trimester: Status: Acute Assessment and plan: A: 19 yo , GDM, elevated sugars x3 during observation period Not in labor, no cvx change, Discomforts of multiparous near term gestation P: Hgb A1C drawn and nml Pt fitted with abdominal binder for comfort 2nd celestone due at 1400 Will review sugars with Dr. Marrero Expect to discharge pt to home this afternoon Has scheduled appt in 3 days with dietetics director Subjective Subjective Patient reports: still having pain, tolerating a regular diet and bowel movement Interval history since last seen: Pt states she woke up at 0230 with increased pain, says her pain is everywhere and constant but especially in lower abd, reports pink tinge to vaginal mucous on post void wipes today. Pt eating a carb-controlled diet, ate well at dinner and for breakfast. No nausea, no vomiting, no diarrhea, nml BM today. Is taking tylenol but does not feel it is helpful. Exam Narrative Exam Narrative: Abd soft and nontender to palpation Category 1 EFM tracing this morning, Contractions q 5-6 minutes per toco SVE performed and is unchanged from yesterday's exam, no blood visible on exam glove Objective Last Vital Signs Temp 98.3 F 08/24/20 20:09 Pulse 118 H 08/25/20 09:29 Resp 20 08/24/20 20:09 BP 110/56 L 08/25/20 09:29 Pulse Ox 97 08/24/20 16:00 Laboratory Results - last 24 hr 08/24/20 08/25/20 12:45 08:32 Hemoglobin A1c 4.9 Chlamydia DNA Probe Cancelled Chlamydia/GC DNA Source Cancelled N.gonorrhoeae DNA Probe Cancelled Reviewed Pertinent PMH: Yes Objective Narrative Objective Narrative: Pt sitting in bed watching TV, resting in room Nurses report she slept well last night without medication, tolerating carb controlled diet well Abd soft and nontender to palpation Category 1 EFM tracing this morning, Contractions q 5-6 minutes per toco SVE performed and is unchanged from yesterday's exam, no blood visible on exam glove 1 hr PP sugar last night 147, fasting 101 today, 1 hr PP after breakfast 128 Afebrile, normotensive Hgb A1C 4.9 today VPS was negative x3 GBS and GC/CT pending
[2020-08-25] MEDS: Betamet Acet/Betamet Na Ph Inj. 30 MG/5 ML 12 MG IM (13:49)
--- NOTE | 2020-08-25 14:02 | DSE_ITS ---
Date of service: 08/25/20 Time of Service: 14:02 DS: Diagnosis Discharge Diagnosis (1) Risk of labor in third trimester: Status: Acute Asessment and Plan: Celestone course completed Blood sugars discussed with Dr. 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 Sx of labor and ROM reviewed with pt Written instructions given to pt Discharge Plan Disposition Patient Disposition: HOME Condition: Good Discharge Details Reason For Visit: LABOR RISK AT 34-35 WKS Admit Date/Time: 08/24/20 15:20 Admit Provider: Julia Johnson Attending Provider: Julia Johnson Primary Care Provider: Jimy Patel Hospital Course Hospital Course: 24 hour observation, no labor, celestone course completed Home Meds and New Rx's Prescriptions: No Action prenat.vits,pollo,[id number] Tablet 1 tab PO DAILY RF: 0 (DME) FreeStyle Lite Strips Strip See Rx Instructions .ROUTE .MEDSUPPLY Qty: 100 RF: 2 (DME) lancets [FreeStyle Lancets] 28 gauge misc See Rx Instructions .ROUTE .MEDSUPPLY Qty: 100 RF: 2 (DME) blood-glucose meter [FreeStyle Lite Meter] Kit See Rx Instructions .ROUTE .MEDSUPPLY Qty: 1 RF: 0 Discharge Instructions Care Plan Goals: Keep your appointment on Monday as already scheduled, check you blood sugar 4x/day and record them in your notebook, remember to bring the notebook to you appointments. Stand Alone Forms: Center Observation Activity:: Activity as Tolerated Equipment/Supplies:: No Equipment Needed Diet:: Normal Diet Discharge Orders Discharge Orders: Discharge Order (Routine); Ordered 08/25/20 Ordered By: Julia Johnson OB:DS Summary Contraception Discussed Contraception Discussed: No (n/a, undelivered), Status at Discharge Functional status at discharge: independent ambulation Overall status at discharge: patient is back to baseline Mental Status: mental status grossly normal Speech and Movement: speech and movement normal and speech clear Mood: congruent mood Affect: blunted Exam Physical Exam Vital signs: Temp Pulse Resp BP Pulse Ox 98.2 F 118 H 20 110/56 L 97 08/25/20 07:20 08/25/20 09:29 08/25/20 07:20 08/25/20 09:29 08/25/20 07:20 Vital Signs Reviewed: Yes Constitutional Constitutional: no acute distress, thin and cooperative Respiratory Exam Respiratory Exam: Normal Cardiovascular Exam Cardiovascular Exam: Normal Abdominal Exam Abdomen: Other (soft and nontender) Comments: Gravid Rectal Exam Rectal Exam: Not Done Extremities Exam Extremity Exam: Normal Skin Exam Skin Exam: Normal [facility] Medical History (Updated 08/24/20 @ 15:28 by Julia Johnson) Acne ADHD (attention deficit hyperactivity disorder) (04/19/12) Family History (Updated 03/12/20 @ 13:03 by Kell Rossi CNM) Mother Mental disorder depression/anxiety Father Essential hypertension Hyperlipidemia Mental disorder depression/anxiety Diabetes Paternal Grandmother Diabetes Social History (Updated 06/14/18 @ 13:46 by Tiana Caldwell RN) Smoking/Tobacco Use Status: Never Smoking risk assessment performed?: Yes Alcohol Intake: never Drug use: Never Substance use type: does not use Details: drinks occasionaly but not with pregencancy Seatbelt use: always Helmet use: Yes 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 Date GA/Weeks # Outcome Route Wgt Sex Labor Lgth Anesthes ia Location Prov Complic 09/25/18 37 No Successful vaginal 7 lb 1 oz Male 6hrs 13 min. regio nal Julia Johnson CNM Delivery Date: 09/25/18 Patient had IV sedation, PROM, Median episiotomy for prolonged and audible decel; loose nuchal cord x2; cord noted to be 3 feet long Lisa Dyer DS: Data Vitals/I&O Vitals and I&O: Vital Signs Temperature 98.2 F 11/17/20 07:20 Pulse 118 H 08/25/20 09:29 Pulse Rhythm Regular 08/25/20 07:20 Respiratory Rate 20 08/25/20 07:20 Respiratory Effort Non-Labored 08/25/20 07:20 Respiratory Depth Normal 08/25/20 07:20 Respiratory Pattern Normal 08/25/20 07:20 Blood Pressure 110/56 L 08/25/20 09:29 Blood Pressure Mean 82 08/25/20 07:20 Pulse Oximetry 97 08/25/20 07:20 Oxygen Delivery Method Room Air 08/24/20 16:00 Oxygen Flow Rate 0 08/24/20 16:00 Pain Level 10 08/25/20 07:35 Comment 08/24/20 16:00 Intake & Output 08/24/20 08/25/20 08/25/20 23:59 11:59 23:59 Other: Urine Appearance Clear Comment Pt up to void; states there was pink on the toilet paper; No hat to measure Data Completed and Pending Labs on day of discharge: Labs from last 24 hours 08/25/20 08:32 Hemoglobin A1c 4.9 08/24/20 12:45 Vaginal/Rectal Group B Streptococcus Screen (TERELL) - Pending Preliminary micro results at discharge 08/24/20 12:45 Group B Streptococcus Screen (TERELL) - Pending Vaginal/Rectal
[2020-08-26 06:28] LABS: Chlamydia amplified RNA Negative (Negative); N gonorrhoeae amplified RNA Negative (Negative); Source CERVIX
--- NOTE | 2020-08-28 15:30 | W.DIABETESNO ---
Date of service: 08/28/20 Time of Service: 15:30 Diabetes Note NOTE: Met with Bon at [facility] today. She reports this week that her fasting sugars are running 76-90mg/dl, post prandials running 124-142 mg/dl. Blood sugar control well controlled with diet at this time. Will continue to follow and support. Time Spent in Nutritional Counseling and Treatment: 10 min face to face
== END 2020-08-25 14:10 | disposition home or self-care (01) ==
LOC: OBS 08-26 10:52 → BCD 08-26 10:52
PROVIDERS: Admitting Provider Advanced Practice Midwife; PCP Pediatrics; Visit Provider Advanced Practice Midwife
DX: O60.03 Preterm labor without delivery, third trimester (principal); O24.410 Gestational diabetes mellitus in pregnancy, diet controlled; Z3A.34 34 weeks gestation of pregnancy; O28.8 Other abnormal findings on antenatal screening of mother; Z03.71 Encounter for suspected problem with amniotic cavity and membrane ruled out; Z36.85 Encounter for antenatal screening for Streptococcus B
CPT/HCPCS: 36415; 59025; 87491; 87591; 96372; 99225; 83036; 87081; 87480; 87510; 87660; G0378; J0702

== ENCOUNTER 2020-08-28 22:22 | Outpatient (REF) | payer MEDICAID, SELFPAY ==
[2020-08-28 21:01] LABS: *AMPHETAMINES SCREEN URINE Negative (Negative); *BARBITURATES SCREEN URINE Negative (Negative); *BENZODIAZEPINES SCREEN URINE Negative (Negative); Cannabinoids THC Negative (Negative); Cocaine Screen,Urine Negative (Negative); METHADONE URINE SCREEN Negative (Negative); OPIATES URINE SCREEN Negative (Negative)
[2020-08-28 21:02] LABS: Tricyclic Antidepressants Negative (Negative)
[2020-09-04 09:23] LABS: Buprenorphine Negative; Norbuprenorphine Negative
== END 2020-08-28 22:42 ==
LOC: LBN 22:22
PROVIDERS: PCP Pediatrics; Visit Provider Advanced Practice Midwife
DX: Z34.93 Encounter for supervision of normal pregnancy, unspecified, third trimester (principal)
CPT/HCPCS: 80307

== ENCOUNTER 2020-09-01 08:30 | Observation (INO) | payer MEDICAID, SELFPAY ==
[2020-09-01 10:06] VITALS: BP 128/72; PULSE 136; RESP 20; TEMP 36.9
[2020-09-01 10:09] VITALS: BP 128/72; PULSE 136; RESP 20; TEMP 36.6
[2020-09-01 10:15] VITALS: BP 128/72; PULSE 136; TEMP 36.9
--- NOTE | 2020-09-01 10:39 | HPE_ITS ---
Date of service: 09/01/20 Time of Service: 10:39 Assessment and Plan Assessment and plan (1) Uterine contractions: Status: Acute Assessment and plan: SVE deferred pending POM plus results. (2) : Status: Acute Assessment and plan: Will perform SVE pending POM plus results. OB-HPI Labor/Delivery History of Present Illness Reason for Visit: PELVIC AND BACK DISCOMFORT Chief Complaint: Uterine Contractions; Suspected Rupture of Membranes , Associated Signs and Symptoms of Suspected ROM: none ; Maternal Discomfort , Associated Signs and Symptoms of Maternal Discomfort: no. FADI Calculator Estimated Delivery Date Method Current WG Current Estimate 09/29/20 Ultrasound #1 36w 0d Other Estimates 09/23/20 LMP (Certain) 36w 6d Comments: Bella Cortez called yesterday with low back, abdominal discomfort and leaking fluid. She was instructed to come in but she did not come in as her symptoms did not increase. She called this morning at 0715 and reported that her discomfort was worse. She reports that she is still leaking fluid//discharge. She does admit to recent intercourse. She denies bleeding. History of Present Expected Delivery Route/Plan - CNM FOB/ - David Hernandez (their second together) Would like water BB no circ Desires immediate Nexplanon GBS negative Specific Issues/Plan Has normal being examination at this 1. Nausea with vomiting, Zofran 4 mg TID Rx'ed 02/11/20 2. [place] and CF testing drawn 2a. CF carrier screen and [place] negative pt informed 03/20/20 advised to make decision re afp by nv.al 2b. Declines single marker AFP 05/12/20 3. Constipation - resolved 05/12/20 4. Gestationl Diabetes -3 hr GTT 66. 185, 207, 184. 08/14/20: Fasting CBGs Nl. Rare 1hr PP over 140. No Rx needed. Assessment: History Reviewed & Current Review of Systems Gastrointestinal Gastrointestinal: Reports constipation Comments: complained of rectal pressure yesterday but it went away after she had a BM Genitourinary Comments: leaking small amounts of fluid. Has had intercourse in the past 24 hours. [facility] Medical History (Updated 09/01/20 @ 10:43 by Kell Rossi CNM) Acne ADHD (attention deficit hyperactivity disorder) (04/19/12) Family History (Updated 03/12/20 @ 13:03 by Kell Rossi CNM) Mother Mental disorder depression/anxiety Father Essential hypertension Hyperlipidemia Mental disorder depression/anxiety Diabetes Paternal Grandmother Diabetes Social History (Updated 06/14/18 @ 13:46 by Tiana Caldwell RN) Smoking/Tobacco Use Status: Never Smoking risk assessment performed?: Yes Alcohol Intake: never Drug use: Never Substance use type: does not use Details: drinks occasionaly but not with pregencancy Seatbelt use: always Helmet use: Yes 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 Date GA/Weeks # Outcome Route Wgt Sex Labor Lgth Anesthes ia Location Prov Complic 09/25/18 37 No Successful vaginal 7 lb 1 oz Male 6hrs 13 min. regio peggy galeas CNM Delivery Date: 09/25/18 Patient had IV sedation, PROM, Median episiotomy for prolonged and audible decel; loose nuchal cord x2; cord noted to be 3 feet long Lisa Dyer Home Medications and Allergies Home Medications Medication Instructions Recorded Confirmed Type prenat.vits,pollo,iwp-ejky-cfhkw 1 tab PO DAILY 01/22/20 08/21/20 History blood sugar diagnostic #100 ea 07/21/20 08/21/20 Rx blood-glucose meter #1 ea 07/21/20 08/21/20 Rx lancets 28 gauge #100 ea 07/21/20 08/21/20 Rx Allergies Allergy/AdvReac Type Severity Reaction Status Date / Time No Known Allergies Allergy Verified 08/28/20 15:13 Exam Physical Exam Vital signs: Temp Pulse Resp BP 97.9 F 136 H 20 128/72 09/01/20 10:09 09/01/20 10:09 09/01/20 10:09 09/01/20 10:09 Constitutional Constitutional: no acute distress Detailed Labor and Delivery Exam Laird Score: Cervical Points Exam 0 1 2 3 Dilation Closed 1-2cm 3-4 cm 5-6cm Effacement 0-30% 40-50% 60-70% 80% Consistency Firm Medium Soft Station -3 -2 -1,0 +1,+2 Position Posterior Mid Anterior Amniotic Membrane Status: Intact Pooling: Negative Nitrazine: Negative Contraction Intensity: Mild Fetus A Heart Rate Baseline: 140 Monitor Accelerations: 15 X 15 Monitor Decelerations: None Variability: Moderate (6-25 BPM) Presentation: Cephalic Categories: Category I Risk Assessment Risk for Shoulder Dystocia Historical/Initial OB: NEGATIVE FOR: Pelvic Abnormality, Pre- BMI>30, Previous Shoulder Dystocia or Previous Macrosomia Increased Risk?: No Risk for Pre-Eclampsia Daily Dose ASA Indicated: No Yes, if one or more: NEGATIVE FOR: Hx Pre-E/Gest HTN, Chronic HTN, Multiple Gestation, Pre-gestational DM, Renal Disease, Systemic Lupus or APA Syndrome Yes, if 2 or more: NEGATIVE FOR: Nulliparity, Age>= 35 yrs, >10yr btwn pregnancies, BMI>30, ethinicty, Mother/Sister w/ Pre-E or P revious IUGR Risk for Post- Hemorrhage Initial: NEGATIVE FOR: Multiple Gestation, Previous PPH, Known Clotting Deficiency, Grand Multiparity or Anticoagulation At Risk?: No Risks Reviewed Risks Reviewed Upon Admission: Yes
[2020-09-01 11:05] LABS: ROM Plus Negative
[2020-09-01 11:18] VITALS: BP 116/71; PULSE 123; RESP 20; TEMP 36.8
--- NOTE | 2020-09-01 12:02 | W.PM.DS.N ---
Date of service: 09/01/20 Time of Service: 12:02 DS: Diagnosis Discharge Diagnosis (1) Uterine contractions: Status: Acute Asessment and Plan: Bon had intercourse last night despite experiencing discomfort and contractions all day. ROM plus negative. White creamy discharge noted at introitus. Contractions are irregular and mild. SVE performed. Cervix long/-2 station/vertex presenting. There was marked firm stool in rectum noted. Bella Cortez indicated that she would like the baby to come now. We discussed concerns about near- . I recommended a stool softener, rest and pelvic rest for one week until 37 weeks. I also recommended tylenol for discomfort and benadry PRN at for sleep. Signs of labor were reviewed. RTO 09/07 for visit at [facility]. (2) : Status: Acute Discharge Plan Disposition Patient Disposition: HOME Condition: Good Discharge Details Reason For Visit: PELVIC AND BACK DISCOMFORT Admit Date/Time: 09/01/20 08:30 Admit Provider: Kell Rossi Attending Provider: Kell Rossi Primary Care Provider: Jimy Patel Home Meds and New Rx's Prescriptions: No Action prenat.vits,pollo,xki-rlan-ptaoz Tablet 1 tab PO DAILY RF: 0 (DME) FreeStyle Lite Strips Strip See Rx Instructions .ROUTE .MEDSUPPLY Qty: 100 RF: 2 (DME) lancets [FreeStyle Lancets] 28 gauge misc See Rx Instructions .ROUTE .MEDSUPPLY Qty: 100 RF: 2 (DME) blood-glucose meter [FreeStyle Lite Meter] Kit See Rx Instructions .ROUTE .MEDSUPPLY Qty: 1 RF: 0 Discharge Instructions Activity:: Activity as Tolerated Equipment/Supplies:: No Equipment Needed Diet:: As Tolerated Discharge Orders Discharge Orders: Discharge Order (Routine); Ordered 09/01/20 Ordered By: Kell Rossi Discharge Data Discharge Date/Time-TO BE ENTERED AT DEPARTURE: 09/01/20 11:35 DS: Summary Status at Discharge Functional status at discharge: independent ambulation Overall status at discharge: patient is back to baseline Mental Status: mental status grossly normal Speech and Movement: speech and movement normal Mood: congruent mood Affect: blunted Exam Psych Mental Status: mental status grossly normal Speech and Movement: speech and movement normal Mood: congruent mood Affect: blunted DS: Data Vitals/I&O Vitals and I&O: Vital Signs Temperature 98.2 F 09/01/20 11:18 Pulse 123 H 09/01/20 11:18 Pulse Rhythm Regular 09/01/20 10:09 Respiratory Rate 09/01/20 11:18 Blood Pressure 116/71 09/01/20 11:18 Oxygen Delivery Method Room Air 09/01/20 10:09 Oxygen Flow Rate 0 09/01/20 10:09 Pain Level 7 09/01/20 10:09 Data Completed and Pending Labs on day of discharge: Labs from last 24 hours 09/01/20 10:20 Membranes Rupture Negative [facility] Medical History (Updated 09/01/20 @ 10:43 by Kell Rossi CNM) Acne ADHD (attention deficit hyperactivity disorder) (04/19/12) Family History (Updated 03/12/20 @ 13:03 by Kell Rossi CNM) Mother Mental disorder depression/anxiety Father Essential hypertension Hyperlipidemia Mental disorder depression/anxiety Diabetes Paternal Grandmother Diabetes Social History (Updated 06/14/18 @ 13:46 by Tiana Caldwell RN) Smoking/Tobacco Use Status: Never Smoking risk assessment performed?: Yes Alcohol Intake: never Drug use: Never Substance use type: does not use Details: drinks occasionaly but not with pregencancy Seatbelt use: always Helmet use: Yes 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 Date GA/Weeks # Outcome Route Wgt Sex Labor Lgth Anesthesia Location Prov Complic 09/25/18 37 No Successful vaginal 7 lb 1 oz Male 6hrs 13 min. regional Julia Johnson CNM Delivery Date: 09/25/18 Patient had IV sedation, PROM, Median episiotomy for prolonged and audible decel; loose nuchal cord x2; cord noted to be 3 feet long Lisa Dyer
--- NOTE | 2020-09-01 15:22 | W.OBNST ---
Date of service: 09/01/20 Time of Service: 12:00 NST Evaluation Reason for NST Reasons for Nonstress Test: OTHER, SEE COMMENT Reason for NST Other: Rule out labor Gestational Age Gestational Age in Weeks and Days: 36 Weeks and 0Days Test and Monitor Explained Test/Monitor Explained: Test Explained, Monitor Explained and Patient Verbalized Understanding Vital Signs Blood Pressure: 128/72 Pulse: 136 Temperature: 98.4 F NST Information Date on Monitor: 09/01/20 Time on Monitor: 10:06 Date off Monitor: 09/01/20 Time off Monitor: 11:15 Total Time on Monitor: 69 NST Interventions: PO Hydration NST Evaluation Patient States Movement: Present FHR Baseline: 145 Variability: Moderate 6-25 bpm Accelerations: 15x15 Decelerations: None NST Results: Reactive Note NST Note Note: see observation H and P NST Reviewed and Verified by: Kell Rossi
[2020-09-01 15:23] VITALS: BP 128/72; PULSE 136; TEMP 36.9
== END 2020-09-01 11:35 | disposition home or self-care (01) ==
PROVIDERS: Admitting Provider Advanced Practice Midwife; PCP Pediatrics; Visit Provider Advanced Practice Midwife
DX: O47.03 False labor before 37 completed weeks of gestation, third trimester (principal); O24.419 Gestational diabetes mellitus in pregnancy, unspecified control; Z3A.36 36 weeks gestation of pregnancy
CPT/HCPCS: 59025; 84112; 99239; G0378

== ENCOUNTER 2020-09-07 15:08 | Outpatient (CLI) | payer MEDICAID, SELFPAY ==
[2020-09-07 15:16] VITALS: BP 110/71; PULSE 109; TEMP 36.8
[2020-09-07 16:35] VITALS: BP 110/71; PULSE 109; TEMP 36.8
--- NOTE | 2020-09-07 16:35 | W.OBNST ---
Date of service: 09/07/20 Time of Service: 16:35 NST Evaluation Reason for NST Reasons for Nonstress Test: DECREASED MOVEMENT Gestational Age Gestational Age in Weeks and Days: 36 Weeks and 6Days Test and Monitor Explained Test/Monitor Explained: Patient Verbalized Understanding Vital Signs Blood Pressure: 110/71 Pulse: 109 Temperature: 98.2 F NST Information Date on Monitor: 09/07/20 Time on Monitor: 15:09 Date off Monitor: 09/07/20 Time off Monitor: 16:23 Total Time on Monitor: 74 NST Interventions: PO Hydration NST Evaluation Patient States Movement: Decreased FHR Baseline: 145 Variability: Moderate 6-25 bpm Accelerations: 15x15 Decelerations: None NST Results: Reactive Note NST Note NST Reviewed and Verified by: Julia Johnson
== END 2020-09-07 16:30 | disposition home or self-care (01) ==
LOC: BCD 15:10 → OBS 15:39
PROVIDERS: PCP Pediatrics; Visit Provider Advanced Practice Midwife
DX: O36.8130 Decreased fetal movements, third trimester, not applicable or unspecified (principal); Z3A.36 36 weeks gestation of pregnancy
CPT/HCPCS: 59025

== ENCOUNTER 2020-09-09 20:18 | Observation (INO) | payer MEDICAID, SELFPAY ==
[2020-09-09 20:34] VITALS: BP 139/72; PULSE 114
[2020-09-09 20:39] VITALS: BP 139/72; PULSE 114; RESP 16; TEMP 36.8
--- NOTE | 2020-09-09 22:02 | W.PM.OBHPL1 ---
Date of service: 09/09/20 Time of Service: 21:00 Assessment and Plan Assessment and plan (1) Uterine contractions: Status: Acute Assessment and plan: Exam by RN. Will assess for 2 hours and have RN recheck SVE for change. PO hydration provided. urine dip neg with trace of leukocytes. OB-HPI Labor/Delivery History of Present Illness Reason for Visit: RULE OUT TERM LABOR Chief Complaint: Uterine Contractions. FADI Calculator Estimated Delivery Date Method Current WG Current Estimate 09/29/20 Ultrasound #1 37w 1d Other Estimates 09/23/20 LMP (Certain) 38w 0d Comments: Reyes reported strong contractions at home. She also felt shaky and had pressure which felt like to baby was coming. Reyes is a poor historian regarding symptoms she is experiencing and has had multiple admissions and labor evaluations for reported leaking of fluid, decreased movement and labor since 31 weeks gestation. She presents with discomfort and regular contractions every 3 minutes, History of Present Expected Delivery Route/Plan - CNM FOB/ - David Hernandez (their second together) Would like water BB no circ Desires immediate Nexplanon GBS negative Specific Issues/Plan 1. Nausea with vomiting, Zofran 4 mg TID Rx'ed 02/11/20 2. [place] and CF testing drawn 2a. CF carrier screen and [place] negative pt informed 03/20/20 advised to make decision re afp by nv.al 2b. Declines single marker AFP 05/12/20 3. Constipation - resolved 05/12/20 4. Gestational Diabetes -3 hr GTT 66. 185, 207, 184. 08/14/20: Fasting CBGs nml. Rare 1hr PP over 140. No Rx needed. 5. Seen for PTL on BC, [place]estone complete @ [address] wks, [address]/GC neg, VPS neg and GBS neg PFSH Medical History (Updated 09/09/20 @ 22:25 by Kell Rossi CNM) Acne ADHD (attention deficit hyperactivity disorder) (04/19/12) Family History (Updated 03/12/20 @ 13:03 by Kell Rossi CNM) Mother Mental disorder depression/anxiety Father Essential hypertension Hyperlipidemia Mental disorder depression/anxiety Diabetes Paternal Grandmother Diabetes Social History (Updated 06/14/18 @ 13:46 by Tiana Caldwell, MARYANNE) Smoking/Tobacco Use Status: Never Smoking risk assessment performed?: Yes Alcohol Intake: never Drug use: Never Substance use type: does not use Details: drinks occasionaly but not with pregencancy Seatbelt use: always Helmet use: Yes Drive intox or ride 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 Date GA/Weeks # Outcome Route Wgt Sex Labor Lgth Anesthesia Location Prov Complic 09/25/18 37 No Successful vaginal 7 lb 1 oz Male 6hrs 13 min. regional Julia Johnson CNM Delivery Date: 09/25/18 Patient had IV sedation, PROM, Median episiotomy for prolonged and audible decel; loose nuchal cord x2; cord noted to be 3 feet long Lisa Dyer Home Medications and Allergies Home Medications Medication Instructions Recorded Confirmed Type prenat.vits,pollo,kib-skuy-byzvy 1 tab PO DAILY 01/22/20 08/21/20 History blood sugar diagnostic #100 ea 07/21/20 08/21/20 Rx blood-glucose meter #1 ea 07/21/20 08/21/20 Rx lancets 28 gauge #100 ea 07/21/20 08/21/20 Rx Allergies Allergy/AdvReac Type Severity Reaction Status Date / Time No Known Allergies Allergy Verified 09/07/20 14:41 Exam Physical Exam Vital signs: Temp Pulse Resp BP 98.2 F 114 H 16 139/72 09/09/20 20:39 09/09/20 20:39 09/09/20 20:39 09/09/20 20:39 Vital Signs Reviewed: Yes Constitutional Constitutional: mild distress Detailed Labor and Delivery Exam Dilation: 2 Effacement (%): 50 station: -2 Cervix position: mid Consistency: medium Laird Score: Cervical Points Exam 0 1 2 3 Dilation Closed 1-2cm 3-4 cm 5-6cm Effacement 0-30% 40-50% 60-70% 80% Consistency Firm Medium Soft Station -3 -2 -1,0 +1,+2 Position Posterior Mid Anterior Amniotic Membrane Status: Intact Contraction Intensity: Mild/Moderate Comments: contractions mild to mod to palpation and patient feels discomfort at th etop of her abdomen Fetus A Heart Rate Baseline: 140 Monitor Accelerations: 15 X 15 Monitor Decelerations: None Variability: Moderate (6-25 BPM) Presentation: Cephalic Categories: Category I Respiratory Exam Respiratory Exam: Normal Cardiovascular Exam Cardiovascular Exam: Normal Abdominal Exam Abdominal Exam: Normal Exam Exam: Normal Extremities Exam Extremities Exam: Normal Back/Spine/Pelvis Exam Pelvis Adequate: Yes Skin Exam Skin Exam: Abnormal (facial acne) Psychiatric Exam Psychiatric Exam: Normal Risk Assessment Risk for Shoulder Dystocia Historical/Initial OB: NEGATIVE FOR: Pelvic Abnormality, Pre- BMI>30, Previous Shoulder Dystocia or Previous Macrosomia Risk for Pre-Eclampsia Yes, if one or more: NEGATIVE FOR: Hx Pre-E/Gest HTN, Chronic HTN, Multiple Gestation, Pre-gestational DM, Renal Disease, Systemic Lupus or APA Syndrome Yes, if 2 or more: NEGATIVE FOR: Nulliparity, Age>= 35 yrs, >10yr btwn pregnancies, BMI>30, ethinicty, Mother/Sister w/ Pre-E or Previous IUGR Risk for Post- Hemorrhage Initial: NEGATIVE FOR: Multiple Gestation, Previous PPH, Known Clotting Deficiency, Grand Multiparity or Anticoagulation Risks Reviewed Risks Reviewed Upon Admission: Yes
--- NOTE | 2020-09-09 22:54 | DSE_ITS ---
Date of service: 09/09/20 Time of Service: 22:54 DS: Diagnosis Discharge Diagnosis (1) Uterine contractions: Status: Acute Asessment and Plan: SVE by RN. No change in cervix. Reviewed signs of labor. Discharged to home with US to be scheduled and appointment at 38 weeks. Discharge Plan Disposition Patient Disposition: HOME Condition: Stable Discharge Details Reason For Visit: RULE OUT TERM LABOR Admit Date/Time: 09/09/20 20:18 Admit Provider: Kell Rossi Attending Provider: Kell Rossi Primary Care Provider: Jimy Patel Home Meds and New Rx's Prescriptions: No Action prenat.vits,pollo,[id number]-iatk-gculy Tablet 1 tab PO DAILY RF: 0 (DME) FreeStyle Lite Strips Strip See Rx Instructions .ROUTE .MEDSUPPLY Qty: 100 RF: 2 (DME) lancets [FreeStyle Lancets] 28 gauge misc See Rx Instructions .ROUTE .MEDSUPPLY Qty: 100 RF: 2 (DME) blood-glucose meter [FreeStyle Lite Meter] Kit See Rx Instructions .ROUTE .MEDSUPPLY Qty: 1 RF: 0 Discharge Instructions Instructions: Early Labor Signs (DC) Activity:: Activity as Tolerated Equipment/Supplies:: No Equipment Needed Diet:: As Tolerated Discharge Orders Discharge Orders: Discharge Order (Routine); Ordered 09/09/20 Ordered By: Kell Rossi OB:DS Summary Contraception Discussed Contraception Discussed: No, Status at Discharge Functional status at discharge: independent ambulation Overall status at discharge: patient is back to baseline Mental Status: mental status grossly normal Speech and Movement: speech and movement normal Mood: congruent mood Affect: normal affect Exam Physical Exam Vital signs: Temp Pulse Resp BP 98.2 F 114 H 16 139/72 09/09/20 20:39 09/09/20 20:39 09/09/20 20:39 09/09/20 20:39 Vital Signs Reviewed: Yes Constitutional Constitutional: mild distress [facility] Medical History (Updated 09/09/20 @ 22:25 by Kell Rossi CNM) Acne ADHD (attention deficit hyperactivity disorder) (04/19/12) Family History (Updated 03/12/20 @ 13:03 by Kell Rossi CNM) Mother Mental disorder depression/anxiety Father Essential hypertension Hyperlipidemia Mental disorder depression/anxiety Diabetes Paternal Grandmother Diabetes Social History (Updated 06/14/18 @ 13:46 by Tiana Caldwell RN) Smoking/Tobacco Use Status: Never Smoking risk assessment performed?: Yes Alcohol Intake: never Drug use: Never Substance use type: does not use Details: drinks occasionaly but not with pregencancy Seatbelt use: always Helmet use: Yes 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 Date GA/Weeks # Outcome Route Wgt Sex Labor Lgth Anesthes ia Location Prov Complic 09/25/18 37 No Successful vaginal 7 lb 1 oz Male 6hrs 13 min. regio nal Julia Johnson CNM Delivery Date: 09/25/18 Patient had IV sedation, PROM, Median episiotomy for prolonged and audible decel; loose nuchal cord x2; cord noted to be 3 feet long Lisa Dyer DS: Data Vitals/I&O Vitals and I&O: Vital Signs Temperature 98.2 F 09/09/20 20:39 Pulse 114 H 09/09/20 20:39 Respiratory Rate 16 09/09/20 20:39 Blood Pressure 139/72 09/09/20 20:39 Oxygen Delivery Method Room Air 09/09/20 20:39 Oxygen Flow Rate 0 09/09/20 20:39 Intake & Output 09/08/20 09/09/20 09/09/20 23:59 11:59 23:59 Intake Total 480 / 480 Output Total 150 / 150 Balance 330 / 330 Intake: Oral 480 / 480 Output: Urine 150 / 150
== END 2020-09-09 23:05 | disposition home or self-care (01) ==
PROVIDERS: Admitting Provider Advanced Practice Midwife; PCP Pediatrics; Visit Provider Advanced Practice Midwife
DX: O62.8 Other abnormalities of forces of labor (principal); O24.410 Gestational diabetes mellitus in pregnancy, diet controlled; Z3A.38 38 weeks gestation of pregnancy
CPT/HCPCS: G0378

== ENCOUNTER 2020-09-14 01:09 | Outpatient (CLI) | payer MEDICAID, SELFPAY ==
--- NOTE | 2020-09-14 08:00 | DI.US_ITS ---
EXAM: US OB DARIO WEIGHT INDICATION: low maternal weight gain,o26.10,o26.843. COMPARISON: US US OB DARIO WEIGHT from 08/14/2020 TECHNIQUE: Obstetric ultrasound exam FINDINGS: Obstetric ultrasound exam was performed. Compared to prior study of August 14, 2020. Again noted is a single viable intrauterine gestation with cardiac activity identified-137 BPM. Fetus is presently in cephalic position. There is normal amount of amniotic fluid with an DARIO of 1 7.4 centimetres. Placenta is anterior grade 3 fundal right. No evidence of placenta previa. Dating parameters places at approximately 38 weeks and 3 days gestational age. BPD measures at 37 weeks and 6 days Head circumference measures 40 weeks and 3 days Abdominal circumference measures 38 weeks and 2 days Femur length measures 36 weeks and 6 days. Estimated weight is 3420 grams-7 pounds 9 ounces. Fetus is at the 70th percentile on the Hadlo ck scale. IMPRESSION: Single viable intrauterine gestation which is approximately 38 weeks and 3 days gestational age by ul trasound dating, implying FADI of September 25, 2020. Normal amount of amniotic fluid. Anterior place nta with no evidence of placenta previa.
== END 2020-09-14 01:29 ==
PROVIDERS: PCP Pediatrics; Visit Provider Advanced Practice Midwife
DX: O26.843 Uterine size-date discrepancy, third trimester (principal); O26.13 Low weight gain in pregnancy, third trimester
CPT/HCPCS: 76816

== ENCOUNTER 2020-09-15 15:46 | Outpatient (CLI) | payer MEDICAID, SELFPAY ==
[2020-09-15 16:00] VITALS: BP 110/61; PULSE 107; TEMP 208.8; TEMP 98.2
[2020-09-15 16:30] VITALS: BP 110/61; PULSE 107; TEMP 208.8; TEMP 98.2
[2020-09-15 16:49] LABS: Bilirubin Negative (Negative); Blood Negative (Negative); Clarity Clear (Clear); Glucose Negative (Negative); Ketones Negative (Negative); Leukocyte Esterase Trace (Negative); Nitrite Negative (Negative); Specific Gravity 1.025 (1.005-1.025)
[2020-09-15 17:00] LABS: Bacteria Few HPF (Negative); C & S Indicated? C&S Done As Ordered; Crystals Negative HPF (Negative); Epithelial Cells Many HPF (Negative); Mucus Negative (Negative); RBC 0-2 HPF (0-2)
[2020-09-16 10:02] VITALS: BP 110/61; PULSE 107; TEMP 208.8; TEMP 98.2
--- NOTE | 2020-09-16 10:02 | W.OBNST ---
Date of service: 09/15/20 Time of Service: 17:02 NST Evaluation Reason for NST Reasons for Nonstress Test: DECREASED MOVEMENT Gestational Age Gestational Age in Weeks and Days: 38 Weeks and 0Days Test and Monitor Explained Test/Monitor Explained: Test Explained, Monitor Explained and Patient Verbalized Understanding Vital Signs Blood Pressure: 110/61 Pulse: 107 Temperature: 208.8 F NST Information Date on Monitor: 09/15/20 Time on Monitor: 15:52 Date off Monitor: 09/15/20 Time off Monitor: 16:33 Total Time on Monitor: 41 NST Interventions: PO Hydration and Other Contraction Frequency: irreg. NST Evaluation Patient States Movement: Present FHR Baseline: 145 Variability: Moderate 6-25 bpm Accelerations: 15x15 Decelerations: None NST Results: Reactive Note NST Note NST Reviewed and Verified by: Julia Johnson
== END 2020-09-15 16:41 | disposition home or self-care (01) ==
LOC: BCD 15:48 → OBS 16:19
PROVIDERS: PCP Pediatrics; Visit Provider Advanced Practice Midwife
DX: O36.8130 Decreased fetal movements, third trimester, not applicable or unspecified (principal); Z3A.38 38 weeks gestation of pregnancy
CPT/HCPCS: 59025; 81003; 81015; 87086

== ENCOUNTER 2020-09-18 08:20 | Inpatient (IN) | payer MEDICAID, SELFPAY ==
[2020-09-18] VITALS (13 sets, daily range): BP systolic 100–128; BP diastolic 55–85; PULSE 94–120; RESP 18–20; TEMP 36.7–37.4; O2SAT 96–97
--- NOTE | 2020-09-18 08:24 | W.PM.OBHPL1 ---
Date of service: 09/18/20 Time of Service: 08:24 Assessment and Plan Assessment and plan (1) 38 weeks gestation of : Status: Acute (2) Spontaneous rupture of amniotic membranes: Status: Acute Assessment and plan: A: @ 38+3 wks SROM clear fluid @ 0650, confirmed Active labor GBS Negative, Rh+, Rubella and Varicella immune GDM diet controlled Increased risk for SD d/t GDM status, pelvis proven to 7'1 No increased risk for PPH P: Admit to BC, T&S, CBC, COVID swab Intermittent auscultation after category 1 tracing Expectant management, anticipate Hand off to EVELYN Rossi @ 0830 OB-HPI Labor/Delivery History of Present Illness Reason for Visit: TERM LABOR, SROM CONFIRMED Chief Complaint: Uterine Contractions; Suspected Rupture of Membranes (gush of clear fluid woke her up at 0650,) , Associated Signs and Symptoms of Suspected ROM: fluid visibly draining from vagina. FADI Calculator Estimated Delivery Date Method Current WG Current Estimate 09/29/20 Ultrasound #1 38w 3d Other Estimates 09/23/20 LMP (Certain) 39w 2d History of Present Expected Delivery Route/Plan - CNM FOB/ - David Hernandez (their second together) Would like water BB no circ GBS negative Desires immediate Nexplanon GDM diet controlled, per [facility] guidelines, plan delivery 40-41 wks Specific Issues/Plan 1. Nausea with vomiting, Zofran 4 mg TID Rx'ed 02/11/20 2. [place] and CF testing drawn 2a. CF carrier screen and [place] negative pt informed 03/20/20 advised to make decision re afp by al 2b. Declines single marker AFP 05/12/20 3. Constipation - resolved 05/12/20 4. Gestational Diabetes -3 hr GTT 66. 185, 207, 184. 08/14/20: Fasting CBGs nml. Rare 1hr PP over 140. No Rx needed. 5. Seen for PTL on BC, [place] complete @ 34 wks, [address]/GC neg, VPS neg and GBS neg Review of Systems All systems reviewed & are unremarkable except as noted in HPI and below Constitutional Constitutional: Reports as per HPI Cardiovascular Cardiovascular: Reports as per HPI Respiratory Respiratory: Reports system reviewed and no additional complaints, except as documented Gastrointestinal Gastrointestinal: Reports system reviewed and no additional complaints, except as documented and Reports constipation Genitourinary Genitourinary: Reports system reviewed and no additional complaints, except as documented Integumentary/Breasts Skin/Breast: Reports system reviewed and no additional complaints, except as documented Psychiatric Psychiatric: Reports system reviewed and no additional complaints, except as documented [facility] Medical History (Updated 09/18/20 @ 08:36 by Julia Johnson) Acne ADHD (attention deficit hyperactivity disorder) (04/19/12) Family History (Updated 03/12/20 @ 13:03 by Kell Rossi CNM) Mother Mental disorder depression/anxiety Father Essential hypertension Hyperlipidemia Mental disorder depression/anxiety Diabetes Paternal Grandmother Diabetes Social History (Updated 06/14/18 @ 13:46 by Tiana Caldwell RN) Smoking/Tobacco Use Status: Never Smoking risk assessment performed?: Yes Alcohol Intake: never Drug use: Never Substance use type: does not use Details: drinks occasionaly but not with pregencancy Seatbelt use: always Helmet use: Yes 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 Date GA/Weeks # Outcome Route Wgt Sex Labor Lgth Anesthesia Location Prov Complic 09/25/18 37 No Successful vaginal 7 lb 1 oz Male 6hrs 13 min. regional Julia Johnson CNM Delivery Date: 09/25/18 Patient had IV sedation, PROM, Median episiotomy for prolonged and audible decel; loose nuchal cord x2; cord noted to be 3 feet long Lisa Dyer Home Medications and Allergies Home Medications Medication Instructions Recorded Confirmed Type prenat.vits,pollo,cby-mson-ragls 1 tab PO DAILY 01/22/20 09/15/20 History blood sugar diagnostic #100 ea 07/21/20 09/15/20 Rx blood-glucose meter #1 ea 07/21/20 09/15/20 Rx lancets 28 gauge #100 ea 07/21/20 09/15/20 Rx Allergies Allergy/AdvReac Type Severity Reaction Status Date / Time No Known Allergies Allergy Verified 09/15/20 15:24 Exam Physical Exam Vital Signs Reviewed: Yes Constitutional Constitutional: mild distress, thin and cooperative Detailed Labor and Delivery Exam Dilation: 5 Effacement (%): 90 station: 0 Cervix position: mid Consistency: soft Amniotic Membrane Status: Ruptured Rupture Method: Spontaneous Amniotic Fluid: Clear Pooling: Positive Nitrazine: Positive Ferning: Present Monitor Mode: External Contraction Intensity: Moderate Fetus A Heart Rate Baseline: 125 Monitor Accelerations: 15 X 15 Monitor Decelerations: None Variability: Moderate (6-25 BPM) Presentation: Cephalic Categories: Category I Est. Weight: 7 lb 4.404 oz Est. Weight: 3300 gms Date of Membrane Rupture: 09/18/20 Time of Membrane Rupture: 06:50 HEENT Exam HEENT Exam: Normal Neck Exam Neck Exam: Normal Chest/Brest/Axilla Exam Chest Exam: Normal Breast Exam Breast Exam: Normal Respiratory Exam Respiratory Exam: Normal Cardiovascular Exam Cardiovascular Exam: Normal Rectal Exam Rectal Exam: Normal Exam Exam: Normal Extremities Exam Extremities Exam: Normal Back/Spine/Pelvis Exam Back Exam: Normal Pelvis Adequate: Yes Skin Exam Skin Exam: Normal Neurological Exam Neurological Exam: Normal Psychiatric Exam Psychiatric Exam: Normal Results Results Group Beta Strep: Negative Blood Type: O+ Rubella Status: Immune Varicella Immunity: Immune Risk Assessment Risk for Shoulder Dystocia Historical/Initial OB: NEGATIVE FOR: Pelvic Abnormality, Pre- BMI>30, Previous Shoulder Dystocia or Previous Macrosomia 40 Weeks: NEGATIVE FOR: EFW> 4500 gms, Maternal Weight Gain >40lb or Post Dates Increased Risk?: Yes Delivery Plan @ 36wks: spont labor, diet controlled GDM, EFW in the 70th percentile Risk for Pre-Eclampsia Daily Dose ASA Indicated: No Yes, if one or more: NEGATIVE FOR: Hx Pre-E/Gest HTN, Chronic HTN, Multiple Gestation, Pre-gestational DM, Renal Disease, Systemic Lupus or APA Syndrome Yes, if 2 or more: NEGATIVE FOR: Nulliparity, Age>= 35 yrs, >10yr btwn pregnancies, BMI>30, ethinicty, Mother/Sister w/ Pre-E or Previous IUGR Risk for Post- Hemorrhage Initial: NEGATIVE FOR: Multiple Gestation, Previous PPH, Known Clotting Deficiency, Grand Multiparity or Anticoagulation At Risk?: No Risks Reviewed Risks Reviewed Upon Admission: Yes
[2020-09-18 08:48] LABS: HGB 13.9 g/dL (11.2-15.7); MCH 29.8 pg (27.0-33.0); MCHC 33.1 % (32.0-36.0); MCV 90.1 fL (80-95); MPV 11.7 fL (8.0-11.0); Platelet Count 273 10^3/uL (130-400); RBC 4.66 10^6/uL (3.93-5.22); RDW 13.4 % (11.7-14.6); RDW-SD 43.7 fL; WBC 17.71 10^3/uL (4.4-10.8)
[2020-09-18] MEDS: Nalbuphine 10 MG/ML AMP 5 MG SC (09:54)
[2020-09-18] MEDS: Oxytocin 10 UNITS/ML VIAL IM (11:45)
--- NOTE | 2020-09-18 12:27 | OBVDS_ITS ---
Date of service: 09/18/20 Time of Service: 12:27 OB Labor/ Delivery Information Baby A Delivery Delivery Method: Spontaneaous Presentation: Cephalic Cephalic Position: Vertex Vertex Position: Right Occipital Anterior Breech Position: N/A Cord Description-Baby A: 3 Vessels Amniotic Fluid: Clear Estimated Blood Loss: 300 Delivery Outcome: Liveborn Infant Transferred: Remains with Mother Note: Spontaneous urges to push began at 7 cm dilation, 5 mg Nubain given SC, cvx dilated to fully over an hour's time, pt pushed strongly in many different positions using several techniques until cephalic presentation rotated from ROT to OA and delivered a vigorous male over intact perineum, right nuchal hand noted, anterior shoulder came easily. Baby directly to mother's arms, 10 units pitocin given IM, cord clamped when pulsations ceased and FOB cut the cord, cord blood collected, Ivory placenta intact with 3 VC, one stitch Vicryl placed in superficial tear at perineum to assure approximation of edges. Fundus firm below umbilicus, excellent bonding observed. Providers Nurse Human Factors Ergonomist: Julia Johnson Nurse: Ruth Alexander Nurse: Tereza Abbasi Labor/Delivery Information Number of Babies in Womb: 1 Steroids Given: None Reason Steroids Not Administered: N/A Group Beta Strep: Negative Rubella Status: Immune Blood Type: O+ Varicella Immunity: Immune Medication in Delivery: nubain Maternal Complications: None Shoulder Dystocia: No Stages of Labor Onset of Labor Date: 09/18/20 Onset of Labor Time: 06:00 ROM Baby A: 09/18/20 ROM Baby A: 06:50 ROM Total Time- Baby A: [id number] Delivery Date-Baby A: 09/18/20 Infant Delivery Time-Baby A: 11:39 Placenta Delivery Date-Baby A: 09/18/20 Placenta Delivery Time-Baby A: 11:48 Labor-Stage 3 Duration: 9 minutes Total Length of Labor-Baby A: 5 hours and 39 minutes Placenta Status: Delivered Baby A Gender: Male Gestational Status: Term (39-41.6 wks) Gestational Age in Weeks/Days: 38 Weeks and 3 Days Score-1 Minute Interval(Baby A) Heart Rate-1 minute: 100 BPM or Greater Respiratory Effort- 1 minute: Spontaneous/Strong Cry Muscle Tone-1 minute: Active Movement Reflex Response-1 minute: Prompt Response Color-1 minute: Bluish Hands or Feet Score-5 Minute Interval(Baby A) Heart Rate- 5 minute: 100 BPM or Greater Respiratory Effort-5 minute: Spontaneous/Strong Cry Muscle Tone-5 minute: Active Movement Reflex Response-5 minute: Prompt Response Color-5 minute: Bluish Hands or Feet Procedure Procedures: Cord Blood Collection
[2020-09-18] MEDS: Hamamelis Leaf/Glycerin 100 EACH BOX PR (14:01)
[2020-09-18] MEDS: Acetaminophen 325 MG TAB 650 MG PO (18:55)
[2020-09-18] MEDS: Ibuprofen 600 MG TAB PO (18:55)
[2020-09-18 22:17] LABS: COVID-19 RT-PCR UVMMC Result Negative (Negative)
[2020-09-19 01:49] VITALS: BP 105/56; PULSE 90; RESP 18; O2SAT 95
[2020-09-19] MEDS: Acetaminophen 325 MG TAB 650 MG PO (05:19)
[2020-09-19] MEDS: Ibuprofen 600 MG TAB PO (05:19)
[2020-09-19 07:48] VITALS: BP 106/72; PULSE 103; RESP 20; TEMP 36.5; O2SAT 100
--- NOTE | 2020-09-19 13:03 | W.OBDELIVERY ---
Date of service: 09/18/20 Time of Service: 12:27 OB Labor/ Delivery Information Baby A Delivery Delivery Method: Spontaneaous Presentation: Cephalic Cephalic Position: Vertex Vertex Position: Right Occipital Anterior Breech Position: N/A Cord Description-Baby A: 3 Vessels Amniotic Fluid: Clear Estimated Blood Loss: 300 Delivery Outcome: Liveborn Infant Transferred: Remains with Mother Note: Spontaneous urges to push began at 7 cm dilation, 5 mg Nubain given SC, cvx dilated to fully over an hour's time, pt pushed strongly in many different positions using several techniques until cephalic presentation rotated from ROT to OA and delivered a vigorous male over intact perineum, right nuchal hand noted, anterior shoulder came easily. Baby directly to mother's arms, 10 units pitocin given IM, cord clamped when pulsations ceased and FOB cut the cord, cord blood collected, Ivory placenta intact with 3 VC, one stitch Vicryl placed in superficial tear at perineum to assure approximation of edges. Fundus firm below umbilicus, excellent bonding observed. Providers Nurse Conservator Artifacts: Julia Johnson Nurse: Ruth Alexander Nurse: Tereza Abbasi Labor/Delivery Information Number of Babies in Womb: 1 Steroids Given: None Reason Steroids Not Administered: N/A Group Beta Strep: Negative Rubella Status: Immune Blood Type: O+ Varicella Immunity: Immune Medication in Delivery: nubain Maternal Complications: None Shoulder Dystocia: No Stages of Labor Onset of Labor Date: 09/18/20 Onset of Labor Time: 06:00 ROM Baby A: 09/18/20 ROM Baby A: 06:50 ROM Total Time- Baby A: [id number] Delivery Date-Baby A: 09/18/20 Infant Delivery Time-Baby A: 11:39 Placenta Delivery Date-Baby A: 09/18/20 Placenta Delivery Time-Baby A: 11:48 Labor-Stage 3 Duration: 9 minutes Total Length of Labor-Baby A: 5 hours and 39 minutes Placenta Cultured: No Placenta Status: Delivered Baby A Gender: Male Gestational Status: Term (39-41.6 wks) Gestational Age in Weeks/Days: 38 Weeks and 3 Days weight: 7 lb 3.169 oz Weight Comment: 3265 gms Length-Baby A: 19.5 in Head Circumference-Baby A: 14 in Score-1 Minute Interval(Baby A) Heart Rate-1 minute: 100 BPM or Greater Respiratory Effort- 1 minute: Spontaneous/Strong Cry Muscle Tone-1 minute: Active Movement Reflex Response-1 minute: Prompt Response Color-1 minute: Bluish Hands or Feet Total Score-1 minute: 9 Score-5 Minute Interval(Baby A) Heart Rate- 5 minute: 100 BPM or Greater Respiratory Effort-5 minute: Spontaneous/Strong Cry Muscle Tone-5 minute: Active Movement Reflex Response-5 minute: Prompt Response Color-5 minute: Bluish Hands or Feet Total Score- 5 minute: 9
--- NOTE | 2020-09-19 16:26 | DSE_ITS ---
Date of service: 09/19/20 Time of Service: 16:27 DS: Diagnosis Discharge Diagnosis (1) Encounter for insertion subdermal contraceptive: Status: Acute Asessment and Plan: Nexplanon insertion site marked with pen and left upper arm cleansed with betadine and alcohol. Approximately 0.5 cc of local anesthetic injected at insertion site and deeply along insertion path. Nexplanon inserted without difficulty and patient tolerated the procedure well. Pressure dressing applied and patient was instructed to keep a bandaid in place for three days and replace the bandaid if the dressing becomes wet. The patient and I identified the device after the procedure. Signs of infection were reviewed. (2) Term delivery with labor: Status: Acute Asessment and Plan: S?P spontaneous vaginal delivery at 38 + 3 weeks gestation. Caring for baby independently. Pain is managed well with oral analgesics. Voiding without difficulty. Tried . Began pumping as baby was not latching and she plans to continue pumping and feeding at home. Requests discharge today. A - stable mother and baby , Post day 1 P - Discharge to home today . Nexplnon placed today. Routine post instructions. [facility] Discharge Plan Disposition Patient Disposition: HOME Condition: Good Discharge Details Reason For Visit: TERM LABOR, SROM CONFIRMED Admit Date/Time: 09/18/20 08:20 Admit Provider: Julia Johnson Attending Provider: Julia Johnson Primary Care Provider: Jimy Patel Home Meds and New Rx's Prescriptions: No Action prenat.vits,pollo,[id number] Tablet 1 tab PO DAILY RF: 0 (DME) FreeStyle Lite Strips Strip See Rx Instructions .ROUTE .MEDSUPPLY Qty: 100 RF: 2 (DME) lancets [FreeStyle Lancets] 28 gauge misc See Rx Instructions .ROUTE .MEDSUPPLY Qty: 100 RF: 2 (DME) blood-glucose meter [FreeStyle Lite Meter] Kit See Rx Instructions .ROUTE .MEDSUPPLY Qty: 1 RF: 0 Discharge Instructions Stand Alone Forms: BC Instructions, BC Post Vaginal Deliver Activity:: Activity as Tolerated Equipment/Supplies:: No Equipment Needed Diet:: As Tolerated Discharge Orders Discharge Orders: Discharge Order (Routine); Ordered 09/19/20 Ordered By: Kell Rossi Discharge Data Discharge Date/Time-TO BE ENTERED AT DEPARTURE: 12/12/20 15:21 OB:DS Summary Summary Vaginal Delivery Method: Spontaneaous Episiotomy Description: None Laceration Description: Perineal Laceration Extension: First Degree Contraception Discussed Contraception Discussed: Yes (nexplanon placed today) Contraceptive Plan: Levonorgestrel Implant, [place] Gender-Baby A: Male weight: 7 lb 3.169 oz Disposition of Baby A: Home Status at Discharge Functional status at discharge: independent ambulation Overall status at discharge: patient is back to baseline Mental Status: mental status grossly normal Speech and Movement: speech and movement normal Mood: congruent mood Affect: normal affect Exam Physical Exam Vital signs: Temp Pulse Resp BP Pulse Ox 97.7 F 103 H 20 106/72 100 09/19/20 07:48 09/19/20 07:48 09/19/20 07:48 09/19/20 07:48 09/19/20 07:48 Vital Signs Reviewed: Yes Constitutional Constitutional: no acute distress Neck Exam Neck Exam: Normal Respiratory Exam Respiratory Exam: Normal Cardiovascular Exam Cardiovascular Exam: Normal Abdominal Exam Comments: nontender Fundal Exam Fundus: Below Umbilicus and Firm Exam Patient deferred: external exam Comments: well- approximated, Nontender Extremities Exam Extremity Exam: Normal Skin Exam Skin Exam: Normal Neurological Exam Neurological Exam: Normal Psychiatric Exam Psychiatric Exam: Normal COUNT INCLUDES THE [facility] Medical History (Updated 09/19/20 @ 16:34 by Kell Rossi CNM) Acne ADHD (attention deficit hyperactivity disorder) (04/19/12) Family History (Updated 03/12/20 @ 13:03 by Kell Rossi CNM) Mother Mental disorder depression/anxiety Father Essential hypertension Hyperlipidemia Mental disorder depression/anxiety Diabetes Paternal Grandmother Diabetes Social History (Updated 06/14/18 @ 13:46 by Tiana Caldwell RN) Smoking/Tobacco Use Status: Never Smoking risk assessment performed?: Yes Alcohol Intake: never Drug use: Never Substance use type: does not use Details: drinks occasionaly but not with pregencancy Seatbelt use: always Helmet use: Yes Drive intox or ride w/intox 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 Date GA/Weeks # Outcome Route Wgt Sex Labor Lgth Anesthes ia Location Prov [facility] 09/25/18 37 No Successful vaginal 7 lb 1 oz Male 6hrs 13 min. regio nal Julia Johnson CNM Delivery Date: 09/25/18 Patient had IV sedation, PROM, Median episiotomy for prolonged and audible decel; loose nuchal cord x2; cord noted to be 3 feet long Lisa Dyer DS: Data Vitals/I&O Vitals and I&O: Vital Signs Temperature 97.7 F 09/19/20 07:48 Pulse 103 H 09/19/20 07:48 Pulse Rhythm Regular 09/19/20 07:48 Respiratory Rate 20 09/19/20 07:48 Respiratory Depth Normal 09/19/20 01:49 Blood Pressure 106/72 09/19/20 07:48 Blood Pressure Mean 83 09/19/20 07:48 Pulse Oximetry 100 09/19/20 07:48 Oxygen Delivery Method Room Air 09/18/20 08:46 Oxygen Flow Rate 0 09/18/20 08:46 Pain Level 3 09/19/20 07:48 Intake & Output 09/18/20 09/19/20 09/19/20 23:59 11:59 23:59 Output Total 400 / 950 Balance -400 / -950 Output: Urine 400 / 500 Other: Urine Color Bright Red Urine Appearance Hematuria Urine Odor None Comment first void Data Completed and Pending Labs on day of discharge: Labs from last 24 hours 09/18/20 08:50 SARS-CoV-2 (PCR) Negative Nasopharyn COVID-19 PCR Not Applicable Ref Test Perform Site Critical access hospital lab
== END 2020-09-19 15:21 | disposition home or self-care (01) | DRG 807 ==
LOC: BCD 08:30 → OBS 08:30
PROVIDERS: Admitting Provider Advanced Practice Midwife; PCP Pediatrics; Visit Provider Advanced Practice Midwife
DX: O69.89X0 Labor and delivery complicated by other cord complications, not applicable or unspecified (principal); Z37.0 Single live birth; O70.0 First degree perineal laceration during delivery; O42.02 Full-term premature rupture of membranes, onset of labor within 24 hours of rupture; Z3A.38 38 weeks gestation of pregnancy; O24.420 Gestational diabetes mellitus in childbirth, diet controlled; Z11.59 Encounter for screening for other viral diseases; Z67.40 Type O blood, Rh positive; Z30.017 Encounter for initial prescription of implantable subdermal contraceptive
CPT/HCPCS: 11981; 36415; 85027; 86850; 86900; 86901; U0003; 59025; J2590; J3490

== ENCOUNTER 2021-05-14 13:42 | Outpatient (REF) | payer MEDICAID, SELFPAY ==
--- NOTE | 2021-05-14 13:15 | PAPFT_PTH ---
PATIENT: Reyes Hernandez LOC: [facility] U#:[id number] AGE/SX: 20/F ROOM: RE05/14/[address]: Kell Aleman CNM : 2000 BED: DIS: 05/14/2021 SPEC #: [id number] RECD: 05/14/21 17:04 STATUS: LISA REQ #: [id number] IMMANUEL: 05/14/21 13:[address]: Kell Aleman [facility]PT[facility] Cytology RECD BY: Charisma Landry ENTERED: 05/14/21 17:04 SP TYPE: PAPFT OTHR DR: Jimy Patel MD Tissues: 1 - CX/ENDOCX FOR PAP SMEARS Procedures: PAP THIN PREP/UVM Screening Comments: [id number]
== END 2021-05-14 13:43 | disposition home or self-care (01) ==
LOC: LBN 13:42
PROVIDERS: PCP Pediatrics; Visit Provider Advanced Practice Midwife
DX: Z12.4 Encounter for screening for malignant neoplasm of cervix (principal)
CPT/HCPCS: 88142

== ENCOUNTER 2022-06-07 03:29 | Outpatient (CLI) | payer MEDICAID, SELFPAY ==
[2022-06-07 14:46] LABS: Abs Immature Grans 0.04 10^3/uL (0.0-0.06); Absolute Basophil Count 0.03 10^3/uL (0.0-0.2); Absolute Eosinophil Count 0.14 10^3/uL (0.0-0.7); Absolute Lymphocyte Count 1.76 10^3/uL (1.2-3.4); Basophils % 0.2; Eosinophils % 1.1; HCT 38.8 % (36.0-46.0); HGB 13.4 g/dL (11.2-15.7); Immature Grans % 0.3; Lymphocytes % 13.7; MCH 30.2 pg (27.0-33.0); MCHC 34.5 % (32.0-36.0); MCV 87 fL (80-95); MPV 11.7 fL (8.0-11.0); Neutrophils % 79.7; Platelet Count 272 10^3/uL (130-400); RBC 4.44 10^6/uL (3.93-5.22); RDW 12.6 % (11.7-14.6); RDW-SD 40.4 fL; WBC 12.88 10^3/uL (4.4-10.8)
[2022-06-07 14:49] LABS: Absolute Monocyte Count 0.64 10^3/uL (0.1-0.8); Absolute Neutrophil Count 10.27 10^3/uL (1.2-6.7)
[2022-06-07 15:11] LABS: Glucose,1 Hr (Glucola) 124 mg/dL (80-140)
[2022-06-07 15:35] LABS: TSH (W/Ref FT4) 0.24 uIU/mL (0.36-3.74)
[2022-06-07 16:06] LABS: *AMPHETAMINES SCREEN URINE Negative (Negative); *BARBITURATES SCREEN URINE Negative (Negative); *BENZODIAZEPINES SCREEN URINE Negative (Negative); Cannabinoids THC Negative (Negative); Cocaine Screen,Urine Negative (Negative); METHADONE URINE SCREEN Negative (Negative); OPIATES URINE SCREEN Negative (Negative)
[2022-06-07 16:08] LABS: FREE T4 1.19 ng/dL (0.76-1.46)
[2022-06-07 16:14] LABS: Tricyclic Antidepressants Negative (Negative)
[2022-06-08 10:04] LABS: Hepatitis C Ab w Rflx HCV PCR Negative (Negative)
[2022-06-08 10:36] LABS: HIV-1/2 Ag & Ab Screen Negative (Negative)
[2022-06-08 11:11] LABS: Varicella IgG Antibody Positive (See Note)
[2022-06-08 11:37] LABS: Hepatitis B Surface Ag Negative (Negative)
[2022-06-08 11:42] LABS: Rubella IgG Ab (UVM) Positive (See Note)
[2022-06-09 18:56] LABS: Syphilis IgG w/Reflex Nonreactive (Nonreactive)
[2022-06-10 12:25] LABS: Buprenorphine Negative ng/mL (Cutoff: 5.0); Norbuprenorphine Negative ng/mL (Cutoff: 2.5)
== END 2022-06-07 03:30 | disposition home or self-care (01) ==
LOC: LBO 03:30
PROVIDERS: Visit Provider Advanced Practice Midwife
DX: Z32.01 Encounter for pregnancy test, result positive (principal); Z34.91 Encounter for supervision of normal pregnancy, unspecified, first trimester
CPT/HCPCS: 36415; 80307; 82950; 86787; 86803; 86850; 86900; 86901; 87340; 87389; 84439; 84443; 85025; 86762; 86780; 87086

== ENCOUNTER 2022-07-05 18:24 | Outpatient (REF) | payer MEDICAID, SELFPAY ==
[2022-07-06 15:59] LABS: Chlamydia Result Negative (Negative); GC Result Negative (Negative)
== END 2022-07-05 18:25 | disposition home or self-care (01) ==
LOC: LBN 18:24
PROVIDERS: Visit Provider Advanced Practice Midwife
DX: Z34.92 Encounter for supervision of normal pregnancy, unspecified, second trimester (principal)
CPT/HCPCS: 87491; 87591

== ENCOUNTER 2022-08-12 01:43 | Outpatient (CLI) | payer MEDICAID, SELFPAY ==
[2022-08-15 10:58] LABS: AFP 123.4 ng/mL; Cigarette smoking status non-Smoker; GA used in risk estimate Dates estimate; IVF Pregnancy No; Initial or repeat testing Initial testing; Insulin dependent diabetes No; Maternal Weight 116 lbs; Number of Fetuses 1; Physician Phone Number 802-748-7300; Prev Pregnancy w/NTD No; RECOMMENDED FOLLOW UP None.; Results Summary Normal risk
== END 2022-08-12 01:44 | disposition home or self-care (01) ==
LOC: LBO 01:43
PROVIDERS: Visit Provider Advanced Practice Midwife
DX: Z34.90 Encounter for supervision of normal pregnancy, unspecified, unspecified trimester (principal)
CPT/HCPCS: 36415; 82105

== ENCOUNTER → 2022-09-13 02:49 | Outpatient (CLI) | payer MEDICAID, SELFPAY ==
--- NOTE | 2022-09-13 07:30 | DI.US_ITS ---
Exam(s) US OB 2-3 TRIMESTER EXAM: US OB 2-3 TRIMESTER CLINICAL HISTORY: anatomy survey,z34.90. TECHNIQUE: Transabdominal obstetrical ultrasound performed. COMPARISON: US US OB DARIO WEIGHT from 09/14/2020 FINDINGS: Number of fetuses: 1 position: VARIED heart rate: 141bpm Placental location: There is a grade 0 anterior and fundal placenta. No evidence of previa. Inciden ghazal note is made of a 4.8 x 1.7 x 4.7 cm placental venous [place]. Amniotic fluid index: Amount of fluid is within normal limits. ANATOMICAL SURVEY: Within normal limits. BIOMETRIC DATA: BPD: 6.18cm,25weeks 1day HC: 23.04cm,25weeks AC: 20.07cm,24weeks 5days FL: 4.5cm,24weeks 6days Cisterna magna: 3.4mm Cerebellum: 2.69cm EFW: 738.02g, 1lb 10.25oz, 26.4% Composite Age: 25weeks FADI:12/27/2022 Heart Rate:141bpm IMPRESSION: 1. Single live intrauterine gestation as above. 2. Normal anatomic survey. DATA REPOSITORY:
== END ==
PROVIDERS: Visit Provider Advanced Practice Midwife
DX: Z34.92 Encounter for supervision of normal pregnancy, unspecified, second trimester (principal)
CPT/HCPCS: 76805

== ENCOUNTER 2022-09-27 02:15 | Outpatient (CLI) | payer MEDICAID, SELFPAY ==
[2022-09-27 16:16] LABS: HCT 37.4 % (36.0-46.0); HGB 12.4 g/dL (11.2-15.7); MCH 30.5 pg (27.0-33.0); MCHC 33.2 % (32.0-36.0); MCV 92 fL (80-95); MPV 10.8 fL (8.0-11.0); Platelet Count 322 10^3/uL (130-400); RBC 4.06 10^6/uL (3.93-5.22); RDW 13.1 % (11.7-14.6); RDW-SD 44.3 fL; WBC 13.31 10^3/uL (4.4-10.8)
[2022-09-27 16:36] LABS: Glucose,1 Hr (Glucola) 133 mg/dL (80-140)
== END 2022-09-27 02:16 | disposition home or self-care (01) ==
LOC: LBO 02:15
PROVIDERS: Visit Provider Advanced Practice Midwife
DX: Z34.92 Encounter for supervision of normal pregnancy, unspecified, second trimester (principal)
CPT/HCPCS: 36415; 82950; 85027

== ENCOUNTER 2022-11-18 09:48 | Outpatient (CLI) | payer MEDICAID, SELFPAY | END 2022-11-18 09:49 | disposition home or self-care (01) | LOC: BCD 09:50 | PROVIDERS: Visit Provider Advanced Practice Midwife ==

== ENCOUNTER 2022-11-23 01:13 | Outpatient (CLI) | payer MEDICAID, SELFPAY ==
--- NOTE | 2022-11-23 07:15 | DI.US_ITS ---
Exam(s) US OB DARIO WEIGHT EXAM: US OB DARIO WEIGHT CLINICAL HISTORY: size less than dates,z34.90. TECHNIQUE: Transabdominal obstetrical ultrasound performed. COMPARISON: US US OB 2-3 TRIMESTER from 09/13/2022 FINDINGS:: Number of fetuses: One. position: Vertex. Placental location: Anterior. No evidence of previa. BIOMETRIC DATA: BPD: 86mm = 34+4 weeks HC: 306mm = 34+1 weeks AC: 302mm = 34+1 weeks FL: 64 mm = 32+ 6 weeks EFW: 2287 Gms = 14% Composite Age: 34+ 0 weeks EDC: December 29 Heart Rate: 145BPM Amniotic fluid index: 8.5 cm. Amount of fluid is visually within normal limits. IMPRESSION: size and weight are at the lower range of normal.. DARIO 8.5 cm DATA REPOSITORY:
== END 2022-11-23 01:33 ==
LOC: DI 01:13
PROVIDERS: Visit Provider Advanced Practice Midwife
DX: Z34.93 Encounter for supervision of normal pregnancy, unspecified, third trimester (principal)
CPT/HCPCS: 76816

== ENCOUNTER 2022-11-28 11:42 | Observation (INO) | payer MEDICAID, SELFPAY ==
[2022-11-28 15:50] VITALS: BP 113/67; PULSE 104; PULSE 107; RESP 16; TEMP 36.6; O2SAT 99
[2022-11-28 16:23] LABS: Source Nasal/Nares
[2022-11-28 16:31] LABS: ROM Plus Negative
[2022-11-28 17:02] LABS: COVID-19 PCR Negative (Negative)
[2022-11-28 17:32] LABS: HCT 36.8 % (36.0-46.0); MCH 29.5 pg (27.0-33.0); MCHC 32.6 % (32.0-36.0); MCV 90 fL (80-95); Platelet Count 250 10^3/uL (130-400); RBC 4.07 10^6/uL (3.93-5.22); RDW 12.5 % (11.7-14.6); RDW-SD 41.1 fL; WBC 15.78 10^3/uL (4.4-10.8)
[2022-11-28] MEDS: Normal Saline 500 ML IV (18:01)
--- NOTE | 2022-11-28 18:13 | HPE_ITS ---
Date of service: 11/28/22 Time of Service: 18:13 Assessment and Plan Assessment and plan (1) labor: Status: Acute Assessment and plan: Reyes was admitted to Center. ROM plus and nitrazine negative. She was assessed for a two-hour period. An IV bolus of 500 cc was infused rapidly and converted to a saline lock. GBS swab was taken. She reported more pelvic pressure and was re-examined and the cervix was found to be unchanged. Will provide comfort measures including warm pack for her back and continue to assess for signs of active labor. Reyes's child is enroute to the ED at [facility] due to URI symptoms and will plan to observe Reyes for now. Dr. Alivia Davis was notified of her status. Will send a Covid- 19 test. Anticipate . OB-HPI Labor/Delivery History of Present Illness Reason for Visit: COVID.Pre procedure/operative Chief Complaint: Uterine Contractions; Suspected Rupture of Membranes (contractions) , Associated Signs and Symptoms of Suspected ROM: none. FADI Calculator Estimated Delivery Date Method Current WG Current Estimate 12/26/22 LMP (Certain) 36w 0d Other Estimates 12/30/22 Ultrasound #1 35w 3d Comments: Reyes called this morning and reported pelvic pressure and cramping. She was encouraged to come in to the center. She called back when she experienced a gush of clear fluid. History of Present Expected Delivery Route/Plan - CNM FOB/ - David Hernandez (3rd child together) Doesn't want to know gender (no circ if male) Interested in trying the tub, maybe waterbirth, liked nubain injection last time Specific Issues/Plan 1. Known CF screen negative, declines cfDNA screening 2. Desires TL at 6-8 wks ; appt @ 30 wks. Consent signed 10/12/22. 3. Had GDM last , early [id number]; repeat 133 4. Ceasar are unvaccinated - They have never had covid 5. size < dates noted @ 33 weeks, ultrasound @ 35 wks: EFW 14%ile and DARIO 8.5 cms PFSH All Active Problems (Updated 11/28/22 @ 18:17 by Kell Rossi CNM) labor (Acute) Fundal height low for dates (Acute) History of gestational diabetes in prior , currently (Acute) (Acute) Speech delay (Acute 04/19/12) IEP in place for speech/learning difficulties Medical History (Updated 11/28/22 @ 18:17 by Kell Rossi CNM) ADHD (attention deficit hyperactivity disorder) (04/19/12) Cervical cancer screening Kidney pain Missed menses confirmed by positive urine test Routine gynecological examination Family History Mother Mental disorder depression/anxiety Father Essential hypertension Hyperlipidemia Mental disorder depression/anxiety Diabetes Paternal Grandmother Diabetes Social History Smoking/Tobacco Use Status: Never Smoking risk assessment performed?: Yes Alcohol Intake: never Drug use: Never Substance use type: does not use Details: drinks occasionaly but not with pregencancy Seatbelt use: always Helmet use: Yes Drive intox or ride w/intox 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 Date GA/Weeks # Preg Succ Route Wgt Sex Labor Lgth Anesth esia Location [facility] 09/25/18 37 No vaginal 7 lb 1 oz Male 6hrs 13 min. regional Lesa Johnson CNM 09/18/20 38 No vaginal 7 lb 3 oz Male 5 hrs 39 min local Lesa Johnson CNM Delivery Date: 09/25/18 Last Updated by: Negar Johnson IV sedation, MLE for prolonged and decel Creed Delivery Date: 09/18/20 Last Updated by: Negar Johnson Nml unmedicated Valdez Chaves [place] Allergies and Home Medications Allergies Allergy/AdvReac Type Severity Reaction Status Date / Time No Known Allergies Allergy Verified 11/23/22 13:16 Home Medications Medication Instructions Recorded Confirmed Type prenat.vits,pollo,[id number] 1 tab PO DAILY 07/05/22 11/28/22 History magnesium oxide 200 mg PO DAILY #90 tabs 11/02/22 11/28/22 Rx pantoprazole 40 mg tablet,delayed 40 mg PO DAILY #30 tabs 11/02/22 11/28/22 Rx release (Protonix) Exam Physical Exam Vital signs: Temp Pulse Resp BP Pulse Ox 97.9 F 104 H 16 113/67 99 11/28/22 15:50 11/28/22 15:50 11/28/22 15:50 11/28/22 15:50 11/28/22 15:50 Detailed Labor and Delivery Exam Dilation: 2 Effacement (%): 50 station: 0 Cervix position: posterior Consistency: soft Laird Score: Cervical Points Exam 0 1 2 3 Dilation Closed 1-2cm 3-4 cm 5-6cm Effacement 0-30% 40-50% 60-70% 80% Consistency Firm Medium Soft Station -3 -2 -1,0 +1,+2 Position Posterior Mid Anterior Amniotic Membrane Status: Intact Monitor Mode: External Contraction Frequency(min): every 2 minutes Contraction Duration(sec): 50 Contraction Intensity: Moderate Fetus A Heart Rate Baseline: 140 Monitor Accelerations: 15 X 15 Monitor Decelerations: None Variability: Moderate (6-25 BPM) Presentation: Cephalic Categories: Category I Respiratory Exam Respiratory Exam: Normal Cardiovascular Exam Cardiovascular Exam: Normal Abdominal Exam Abdominal Exam: Normal Exam Exam: Normal Extremities Exam Extremities Exam: Normal Psychiatric Exam Psychiatric Exam: Normal Results Results Group Beta Strep: Done-Result Unknown Blood Type: O+ Rubella Status: Immune Varicella Immunity: Immune Abnormal Lab Findings: Abnormal Labs 11/28/22 17:12 WBC 15.78 H Risk Assessment Risk for Shoulder Dystocia Historical/Initial OB: NEGATIVE FOR: Pelvic Abnormality, Pre- BMI>30, Previous Shoulder Dystocia or Previous Macrosomia 40 Weeks: NEGATIVE FOR: EFW> 4500 gms, Maternal Weight Gain >40lb or Post Dates Risk for Pre-Eclampsia Date Initiated/Initials: not indicated jk Yes, if one or more: NEGATIVE FOR: Hx Pre-E/Gest HTN, Chronic HTN, Multiple Gestation, Pre-gestational DM, Renal Disease, Systemic Lupus or APA Syndrome Yes, if 2 or more: NEGATIVE FOR: Nulliparity, Age>= 35 yrs, >10yr btwn pregnancies, BMI>30, ethinicty, Mother/Sister w/ Pre-E or Previous IUGR Risk for Post- Hemorrhage Initial: NEGATIVE FOR: Multiple Gestation, Previous PPH, Known Clotting De ficiency, Grand Multiparity or Anticoagulation At Risk?: No Risks Reviewed Risks Reviewed Upon Admission: Yes
[2022-11-28] MEDS: Normal Saline Flush 10 ML SYR IVP (18:30)
[2022-11-28 19:31] VITALS: BP 120/63; PULSE 116
[2022-11-28 19:32] VITALS: BP 120/63; PULSE 116; TEMP 36.8
[2022-11-28 22:46] VITALS: BP 115/64; PULSE 91
[2022-11-28 22:47] VITALS: BP 115/64; PULSE 91; TEMP 36.7
--- NOTE | 2022-11-28 22:53 | DSE_ITS ---
Date of service: 11/28/22 Time of Service: 22:53 DS: Diagnosis Discharge Diagnosis (1) labor: Status: Acute Asessment and Plan: Reyes continues to report discomfort with contractions but the pattern has spaced out to irregular and they are mild to palpation. her 4 year old son was discharged from the ED after 3 hours and is being cared for at her father's house nearby. Reyes is teary at times, talking about her child. Her cervix is unchanged at 2230 from admission at 1600 with cervix 2/50/ posterior, 0 station station bag of water palpable with no leaking fluid. Discharge instructions reviewed including signs of labor. Reyes and her partner will stay at her father's house which is nearby. She was encouraged to call if strong, regular contractions or ROM occurs or bleeding. NST obtained prior to discharge. Discharge Plan Disposition Patient Disposition: Home Condition: Good Discharge Details Reason For Visit: COVID.Pre procedure/operative Admit Date/Time: 11/28/22 11:42 Admit Provider: Kell Rossi Attending Provider: Kell Rossi Home Meds and New Rx's Prescriptions: No Action prenat.vits,pollo,[id number] Tablet 1 tab PO DAILY pantoprazole [Protonix] 40 mg tablet,delayed release (DR/EC) 40 mg PO DAILY Qty: 30 3RF magnesium oxide 200 mg magnesium tablet 200 mg PO DAILY Qty: 90 2RF Discharge Instructions Activity:: Activity as Tolerated Equipment/Supplies:: No Equipment Needed Diet:: As Tolerated Discharge Orders Discharge Orders: Discharge Order (Routine); Ordered 11/28/22 Ordered By: Kell Rossi OB:DS Summary Contraception Discussed Contraception Discussed: No, Status at Discharge Functional status at discharge: independent ambulation Overall status at discharge: patient is back to baseline Mental Status: mental status grossly normal Speech and Movement: speech and movement normal Mood: congruent mood Affect: blunted Exam Physical Exam Vital signs: Temp Pulse Resp BP Pulse Ox 98.0 F 91 H 16 115/64 99 11/28/22 22:47 11/28/22 22:47 11/28/22 15:50 11/28/22 22:47 11/28/22 15:50 Psychiatric Exam Psychiatric Exam: Normal PFSH All Active Problems (Updated 02/20/23 @ 18:17 by Kell Rossi CNM) labor (Acute) Fundal height low for dates (Acute) History of gestational diabetes in prior , currently (Acute) (Acute) Speech delay (Acute 04/19/12) IEP in place for speech/learning difficulties Medical History (Updated 11/28/22 @ 18:17 by Kell Rossi CNM) ADHD (attention deficit hyperactivity disorder) (04/19/12) Cervical cancer screening Kidney pain Missed menses confirmed by positive urine test Routine gynecological examination Family History Mother Mental disorder depression/anxiety Father Essential hypertension Hyperlipidemia Mental disorder depression/anxiety Diabetes Paternal Grandmother Diabetes Social History Smoking/Tobacco Use Status: Never Smoking risk assessment performed?: Yes Alcohol Intake: never Drug use: Never Substance use type: does not use Details: drinks occasionaly but not with pregencancy Seatbelt use: always Helmet use: Yes 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 Date GA/Weeks # Preg Succ Route Wgt Sex Labor Lgth Anesth esia Location Prov [facility] 09/25/18 37 No vaginal 7 lb 1 oz Male 6hrs 13 min. regional Lesa Johnson CNM 09/18/20 38 No vaginal 7 lb 3 oz Male 5 hrs 39 min local Lesa Johnson CNM Delivery Date: 09/25/18 Last Updated by: Negar Johnson IV sedation, MLE for prolonged and decel Creed Delivery Date: 09/18/20 Last Updated by: Negar Johnson Nml unmedicated Valdez Chaves DS: Data Vitals/I&O Vitals and I&O: Vital Signs Temperature 98.0 F 11/28/22 22:47 Pulse 91 H 11/28/22 22:47 Pulse Rhythm Regular 11/28/22 19:50 Respiratory Rate 16 11/28/22 15:50 Respiratory Depth Normal 11/28/22 19:50 Blood Pressure 115/64 11/28/22 22:47 Blood Pressure Mean 81 11/28/22 22:47 Pulse Oximetry 99 11/28/22 15:50 Oxygen Delivery Method Room Air 11/28/22 15:50 Oxygen Flow Rate 0 11/28/22 15:50 Comment Patient reports feeling anxious about son who is sick at this time. 11/28/22 19:32 Intake & Output 11/27/22 11/28/22 11/28/22 23:59 11:59 23:59 Intake Total 500 / 500 Balance 500 / 500 Weight 126 lb Intake: IV 500 / 500 Other: Urine Color Pale Data Completed and Pending Labs on day of discharge: Labs from last 24 hours 11/28/22 11/28/22 11/28/22 22:27 17:12 17:12 WBC 15.78 H RBC 4.07 Hgb 12.0 Hct 36.8 MCV 90 MCH 29.5 MCHC 32.6 RDW 12.5 Plt Count 250 MPV 11.0 Urine Color Pending Urine Clarity Pending Urine pH Pending Ur Specific Wade Pending Urine Protein Pending Urine Ketones Pending Urine Blood Pending Urine Nitrite Pending Urine Bilirubin Pending Urine Urobilinogen Pending Ur Leukocyte Esterase Pending Urine Glucose Pending Membranes Rupture COVID-19 Source SARS-CoV-2 (PCR) Patient ABO/Rh O Positive Antibody Screen NEGATIVE 11/28/22 11/28/22 16:18 15:55 WBC RBC Hgb Hct MCV MCH MCHC RDW Plt Count MPV Urine Color Urine Clarity Urine pH Ur Specific Wade Urine Protein Urine Ketones Urine Blood Urine Nitrite Urine Bilirubin Urine Urobilinogen Ur Leukocyte Esterase Urine Glucose Membranes Rupture Negative COVID-19 Source Nasal/Nares SARS-CoV-2 (PCR) Negative Patient ABO/Rh Antibody Screen 11/28/22 22:35 Urine - Clean Catch Urine Culture - Pending 11/28/22 16:15 Vaginal/Rectal Group B Streptococcus Culture - Pending Preliminary micro results at discharge 11/28/22 22:35 Urine Culture - Pending Urine - Clean Catch 11/28/22 16:15 Group B Streptococcus Culture - Pending Vaginal/Rectal
[2022-11-28 23:04] LABS: Bilirubin Negative (Negative); Blood Negative (Negative); Clarity Clear (Clear); Glucose Negative (Negative); Ketones Negative (Negative); Leukocyte Esterase Negative (Negative); Nitrite Negative (Negative); Specific Gravity 1.015 (1.005-1.025); Urobilinogen 0.2 mg/dL (Up to 0.2)
== END 2022-11-28 23:12 | disposition home or self-care (01) | DRG 833 ==
LOC: OBS 18:26
PROVIDERS: Admitting Provider Advanced Practice Midwife; Visit Provider Advanced Practice Midwife
DX: O60.03 Preterm labor without delivery, third trimester (principal); Z3A.36 36 weeks gestation of pregnancy; O99.343 Other mental disorders complicating pregnancy, third trimester; F90.9 Attention-deficit hyperactivity disorder, unspecified type
CPT/HCPCS: 36415; 84112; 85027; 86850; 86900; 86901; 87635; 59025; 81003; 87081; 87086; G0378

== ENCOUNTER 2022-11-30 09:19 | Outpatient (CLI) | payer MEDICAID, SELFPAY ==
[2022-11-30 11:19] VITALS: BP 115/67; PULSE 101; TEMP 36.9
--- NOTE | 2022-11-30 12:04 | W.OBNST ---
Date of service: 11/30/22 Time of Service: 12:04 NST Evaluation Reason for NST Reasons for Nonstress Test: OTHER, SEE COMMENT Reason for NST Other: rule out labor Gestational Age Gestational Age in Weeks and Days: 36 Weeks and 2Days Test and Monitor Explained Test/Monitor Explained: Test Explained, Monitor Explained and Patient Verbalized Understanding Vital Signs Blood Pressure: 115/67 Pulse: 101 Temperature: 98.4 F Urine Results Urine Protein: Negative Urine Ketones: Negative Urine Glucose: Negative Urine Blood: Negative NST Information Date on Monitor: 11/30/22 Time on Monitor: 11:17 Date off Monitor: 11/30/22 Time off Monitor: 12:04 Total Time on Monitor: 47 NST Interventions: PO Hydration NST Evaluation Patient States Movement: Present FHR Baseline: 130 Variability: Moderate 6-25 bpm Accelerations: 15x15 Decelerations: None NST Results: Reactive Note N/A NST Note Note: Cvx 3/50% vtx -3, poserior cvx, intact membranes RTO 1 wk for 37 wk appt in [facility] GBS and UDS collected today, POC Hgb 11.2 NST Reviewed and Verified by: Negar Johnson
[2022-11-30 12:05] VITALS: BP 115/67; PULSE 101; TEMP 36.9
[2022-11-30 12:31] LABS: *AMPHETAMINES SCREEN URINE Negative (Negative); *BARBITURATES SCREEN URINE Negative (Negative); *BENZODIAZEPINES SCREEN URINE Negative (Negative); Cannabinoids THC Negative (Negative); Cocaine Screen,Urine Negative (Negative); METHADONE URINE SCREEN Negative (Negative); OPIATES URINE SCREEN Negative (Negative)
[2022-11-30 12:35] LABS: Tricyclic Antidepressants Negative (Negative)
[2022-12-10 11:48] LABS: Buprenorphine Negative ng/mL (Cutoff: 5.0); Norbuprenorphine Negative ng/mL (Cutoff: 2.5)
== END 2022-11-30 12:00 | disposition home or self-care (01) ==
LOC: BCD 09:25 → OBS 11:48
PROVIDERS: Visit Provider Advanced Practice Midwife
DX: O47.03 False labor before 37 completed weeks of gestation, third trimester (principal); Z3A.36 36 weeks gestation of pregnancy
CPT/HCPCS: 59025; 80307; 80348; 87081

== ENCOUNTER 2022-12-07 14:20 | Outpatient (CLI) | payer MEDICAID, SELFPAY ==
[2022-12-07 15:09] LABS: ROM Plus Negative
[2022-12-07 15:16] VITALS: BP 119/71; PULSE 106; TEMP 36.8
--- NOTE | 2022-12-07 15:22 | W.OBNST ---
Date of service: 12/07/22 Time of Service: 15:20 NST Evaluation Reason for NST Reasons for Nonstress Test: FALSE LABOR Gestational Age Gestational Age in Weeks and Days: 37 Weeks and 2Days Test and Monitor Explained Test/Monitor Explained: Test Explained, Monitor Explained and Patient Verbalized Understanding Vital Signs Blood Pressure: 119/71 Pulse: 106 Temperature: 98.2 F Urine Results Urine Protein: Negative Urine Ketones: Negative Urine Glucose: Negative Urine Blood: Negative NST Information Date on Monitor: 12/07/22 Time on Monitor: 14:04 Date off Monitor: 12/07/22 Time off Monitor: 14:56 Total Time on Monitor: 52 NST Interventions: PO Hydration Contraction Frequency: Occasional NST Evaluation Patient States Movement: Present FHR Baseline: 145 Variability: Moderate 6-25 bpm Accelerations: 15x15 Decelerations: None NST Results: Reactive Note N/A NST Note Note: NST is reactive and reassuring. Nitrazine was negative in office and ferning was negative. ROM plus negative. Cervix unchanged from prior exam 2/50/-2 soft. Will RTO in 1 week or prn. NST Reviewed and Verified by: Kell Aleman
[2022-12-07 15:23] VITALS: BP 119/71; PULSE 106; TEMP 36.8
== END 2022-12-07 15:15 | disposition home or self-care (01) ==
LOC: BCD 14:20 → OBS 14:21
PROVIDERS: Advanced Practice Midwife; Visit Provider Advanced Practice Midwife
DX: N89.8 Other specified noninflammatory disorders of vagina (principal); O26.893 Other specified pregnancy related conditions, third trimester; O47.1 False labor at or after 37 completed weeks of gestation; Z3A.37 37 weeks gestation of pregnancy
CPT/HCPCS: 59025; 84112; 87480; 87510; 87660

== ENCOUNTER 2022-12-13 14:54 | Outpatient (CLI) | payer MEDICAID, SELFPAY ==
[2022-12-13 14:30] VITALS: BP 114/62; PULSE 81; TEMP 36.8
[2022-12-13 15:02] VITALS: BP 114/62; PULSE 96
--- NOTE | 2022-12-13 15:25 | W.OBNST ---
Date of service: 12/13/22 Time of Service: 15:30 NST Evaluation Reason for NST Reasons for Nonstress Test: FALSE LABOR Gestational Age Gestational Age in Weeks and Days: 37 Weeks and 2Days Test and Monitor Explained Test/Monitor Explained: Test Explained, Monitor Explained and Patient Verbalized Understanding Vital Signs Blood Pressure: 114/62 Pulse: 96 NST Information Date on Monitor: 12/13/22 Time on Monitor: 15:00 Date off Monitor: 12/13/22 Time off Monitor: 15:25 Total Time on Monitor: 25 NST Interventions: None Contraction Frequency: 3-6 NST Evaluation Patient States Movement: Present FHR Baseline: 125 Variability: Moderate 6-25 bpm Accelerations: 15x15 Decelerations: None NST Results: Reactive Note N/A NST Note Note: NST is reactive, CAT I NST Reviewed and Verified by: Kell Aleman
[2022-12-13 17:01] VITALS: BP 114/62; PULSE 96
--- NOTE | 2022-12-13 17:01 | HPE_ITS ---
Date of service: 12/13/22 Time of Service: 16:30 Assessment and Plan Assessment and plan (1) Uterine contractions: Status: Resolved Assessment and plan: 1. NST is reactive. VE 3.5/80/-2 posterior soft, webb 8 2. Patient would like to remain as observation for a couple of hours and have repeat VE to determine if in active labor before going home to return as scheduled in [facility] or prn to . KELLY OB-HPI Labor/Delivery History of Present Illness Reason for Visit: NST Chief Complaint: Uterine Contractions. FADI Calculator Estimated Delivery Date Method Current WG Current Estimate 12/26/22 LMP (Certain) 38w 1d Other Estimates 12/30/22 Ultrasound #1 37w 4d Comments: admitted to observation due to contractions. She prefer to be observed for 2-3 hours and have repeat exam to verify her cervix is not changing before going home. KELLY History of Present Expected Delivery Route/Plan - CNM FOB/ - David Hernandez (3rd child together) Doesn't want to know gender (no circ if male) Interested in trying the tub, maybe waterbirth, liked nubain injection last time GBS negative Specific Issues/Plan 1. Known CF screen negative, declines cfDNA screening 2. Desires TL at 6-8 wks ; MD appt @ 30 wks. Consent signed 10/12/22. 3. Had GDM last , early [id number]; repeat 133 4. Ceasar are unvaccinated - They have never had covid 5. size < dates noted @ 33 weeks, ultrasound @ 35 wks: EFW 14%ile and DARIO 8.5 cms Review of Systems All systems reviewed & are unremarkable except as noted in HPI and below PFSH All Active Problems Vaginal discharge during in third trimester (Acute) labor (Acute) Fundal height low for dates (Acute) History of gestational diabetes in prior , currently (Acute) (Acute) Speech delay (Acute 04/19/12) IEP in place for speech/learning difficulties Medical History ADHD (attention deficit hyperactivity disorder) (07/12/12) Cervical cancer screening Kidney pain Missed menses confirmed by positive urine test Routine gynecological examination Family History Mother Mental disorder depression/anxiety Father Essential hypertension Hyperlipidemia Mental disorder depression/anxiety Diabetes Paternal Grandmother Diabetes Social History Smoking/Tobacco Use Status: Never Smoking risk assessment performed?: Yes Alcohol Intake: never Drug use: Never Substance use type: does not use Details: drinks occasionaly but not with pregencancy Seatbelt use: always Helmet use: Yes 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 Date GA/Weeks # Preg Succ Route Wgt Sex Labor Lgth Anesth esia Location Prov [facility] 09/25/18 37 No vaginal 7 lb 1 oz Male 6hrs 13 min. regional Lesa Johnson CNM 09/18/20 38 No vaginal 7 lb 3 oz Male 5 hrs 39 min local Lesa Johnson CNM Delivery Date: 09/25/18 Last Updated by: Negar Johnson IV sedation, MLE for prolonged and decel Creed Delivery Date: 09/18/20 Last Updated by: Negar Johnson Nml unmedicated Valdez Chaves [place] Allergies and Home Medications Allergies Allergy/AdvReac Type Severity Reaction Status Date / Time No Known Allergies Allergy Verified 12/13/22 17:05 Home Medications Medication Instructions Recorded Confirmed Type prenat.vits,pollo,[id number] 1 tab PO DAILY 07/05/22 12/13/22 History magnesium oxide 200 mg PO DAILY #90 tabs 11/02/22 12/13/22 Rx pantoprazole 40 mg tablet,delayed 40 mg PO DAILY #30 tabs 11/02/22 12/13/22 Rx release (Protonix) hydroxyzine pamoate 50 mg capsule 50 mg PO BID PRN rest #20 caps 12/05/22 12/13/22 Rx (Vistaril) Exam Physical Exam Vital signs: Pulse BP 96 H 114/62 12/13/22 15:02 12/13/22 15:02 Vital Signs Reviewed: Yes Constitutional Constitutional: no acute distress and average body habitus Detailed Labor and Delivery Exam Dilation: 3.5 Effacement (%): 80 station: -2 Cervix position: posterior Consistency: soft Webb Score: Cervical Points Exam 0 1 2 3 Dilation Closed 1-2cm 3-4 cm 5-6cm Effacement 0-30% 40-50% 60-70% 80% Consistency Firm Medium Soft Station -3 -2 -1,0 +1,+2 Position Posterior Mid Anterior WEBB Score(Cervical Ripeness Score): 8 Amniotic Membrane Status: Intact Contraction Frequency(min): irregular Contraction Duration(sec): irregular Contraction Intensity: Mild/Moderate Fetus A Heart Rate Baseline: 125 Monitor Accelerations: 15 X 15 Monitor Decelerations: None Variability: Moderate (6-25 BPM) Categories: Category I HEENT Exam HEENT Exam: Normal Neck Exam Neck Exam: Normal (visual exam) Chest/Brest/Axilla Exam Chest Exam: Not Done Breast Exam Breast Exam: Not Done Respiratory Exam Respiratory Exam: Normal Cardiovascular Exam Cardiovascular Exam: Normal Abdominal Exam Abdominal Exam: Normal Rectal Exam Rectal Exam: Not Done Exam Exam: Normal Extremities Exam Extremities Exam: Normal Back/Spine/Pelvis Exam Back Exam: Not Done Pelvis Adequate: Yes Skin Exam Skin Exam: Normal Neurological Exam Neurological Exam: Normal Psychiatric Exam Psychiatric Exam: Normal Results Results Group Beta Strep: Negative Blood Type: O+ Rubella Status: Immune Varicella Immunity: Immune Risk Assessment Risk for Shoulder Dystocia Historical/Initial OB: NEGATIVE FOR: Pelvic Abnormality, Pre- BMI>30, Previous Shoulder Dystocia or Previous Macrosomia 40 Weeks: NEGATIVE FOR: EFW> 4500 gms, Maternal Weight Gain >40lb or Post Dates Increased Risk?: No Delivery Plan @ 40 wks: NVD expected Risk for Pre-Eclampsia Daily Dose ASA Indicated: No Date Initiated/Initials: not indicated jk Yes, if one or more: NEGATIVE FOR: Hx Pre-E/Gest HTN, Chronic HTN, Multiple Gestation, Pre-gestational DM, Renal Disease, Systemic Lupus or APA Syndrome Yes, if 2 or more: NEGATIVE FOR: Nulliparity, Age>= 35 yrs, >10yr btwn pregnancies, BMI>30, ethinicty, Mother/Sister w/ Pre-E or Previous IUGR Risk for Post- Hemorrhage Initial: NEGATIVE FOR: Multiple Gestation, Previous PPH, Known Clotting Deficiency, Grand Multiparity or Anticoagulation At Risk?: No Counseled re: Active Management: Yes Date/Initials: 12/13/22 [facility] Risks Reviewed Risks Reviewed Upon Admission: Yes
--- NOTE | 2022-12-13 18:36 | DSE_ITS ---
Date of service: 12/13/22 Time of Service: 18:37 DS: Diagnosis Discharge Diagnosis (1) Uterine contractions: Status: Resolved Asessment and Plan: No cervical change in over 3 hours of observation and not in active labor, had reactive NST. Discharge Plan Disposition Patient Disposition: Home Condition: Good Condition: Good Discharge Details Reason For Visit: NST Attending Provider: Kell Aleman Hospital Course Hospital Course: No cervical change coordinator greater than 3 hours of observation and irregular mild contractions. Reactive NST. Home Meds and New Rx's Prescriptions: Continued prenat.vits,pollo,[id number] Tablet 1 tab PO DAILY pantoprazole [Protonix] 40 mg tablet,delayed release (DR/EC) 40 mg PO DAILY Qty: 30 3RF magnesium oxide 200 mg magnesium tablet 200 mg PO DAILY Qty: 90 2RF hydroxyzine pamoate [Vistaril] 50 mg capsule 50 mg PO BID PRN (Reason: rest) Qty: 20 0RF Discharge Instructions Activity:: Activity as Tolerated Activity:: Activity as Tolerated Equipment/Supplies:: No Equipment Needed Diet:: As Tolerated Discharge Orders Discharge Orders: Discharge Order (Routine); Ordered 12/13/22 Ordered By: Kell Aleman Discharge Data Discharge Physician: Kell Aleman OB:DS Summary Contraception Discussed Contraception Discussed: No, Status at Discharge Functional status at discharge: independent ambulation Overall status at discharge: patient is back to baseline Mental Status: mental status grossly normal Speech and Movement: speech and movement normal Mood: congruent mood Affect: normal affect Exam Physical Exam Vital signs: Pulse BP 96 H 114/62 12/13/22 15:02 12/13/22 15:02 Vital Signs Reviewed: Yes Constitutional Constitutional: no acute distress and average body habitus HEENT Exam HEENT Exam: Normal Respiratory Exam Respiratory Exam: Normal Cardiovascular Exam Cardiovascular Exam: Normal Exam Comments: normal exam, cervix 3.5/80/-2 posterior and soft. Extremities Exam Extremity Exam: Normal Neurological Exam Neurological Exam: Normal Psychiatric Exam Psychiatric Exam: Normal PFSH All Active Problems Vaginal discharge during in third trimester (Acute) labor (Acute) Fundal height low for dates (Acute) History of gestational diabetes in prior , currently (Acute) (Acute) Speech delay (Acute 04/19/12) IEP in place for speech/learning difficulties Medical History ADHD (attention deficit hyperactivity disorder) (04/19/12) Cervical cancer screening Kidney pain Missed menses confirmed by positive urine test Routine gynecological examination Family History Mother Mental disorder depression/anxiety Father Essential hypertension Hyperlipidemia Mental disorder depression/anxiety Diabetes Paternal Grandmother Diabetes Social History Smoking/Tobacco Use Status: Never Smoking risk assessment performed?: Yes Alcohol Intake: never Drug use: Never Substance use type: does not use Details: drinks occasionaly but not with pregencancy Seatbelt use: always Helmet use: Yes 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 Date GA/Weeks # Preg Succ Route Wgt Sex Labor Lgth Anesth esia Location [facility] 09/25/18 37 No vaginal 7 lb 1 oz Male 6hrs 13 min. regional Lesa Johnson CNM 09/18/20 38 No vaginal 7 lb 3 oz Male 5 hrs 39 min local Lesa Johnson CNM Delivery Date: 09/25/18 Last Updated by: Negar Johnson IV sedation, MLE for prolonged and decel Creed Delivery Date: 09/18/20 Last Updated by: Negar Johnson Nml unmedicated Valdez Chaves DS: Data Vitals/I&O Vitals and I&O: Vital Signs Pulse 96 H 12/13/22 15:02 Blood Pressure 114/62 12/13/22 15:02
== END 2022-12-13 18:49 | disposition home or self-care (01) ==
LOC: BCD 14:54 → OBS 14:58
PROVIDERS: Visit Provider Advanced Practice Midwife
DX: O47.9 False labor, unspecified (principal); Z3A.38 38 weeks gestation of pregnancy; R10.2 Pelvic and perineal pain
CPT/HCPCS: 59025; G0378

== ENCOUNTER 2022-12-15 10:05 | Outpatient (CLI) | payer MEDICAID, SELFPAY ==
[2022-12-15 14:15] VITALS: BP 107/55; PULSE 103; TEMP 36.9
[2022-12-15 14:18] VITALS: BP 107/55; PULSE 103
[2022-12-15 14:53] LABS: Source Nasal/Nares
--- NOTE | 2022-12-15 15:19 | W.OBNST ---
Date of service: 12/15/22 Time of Service: 15:19 NST Evaluation Reason for NST Reasons for Nonstress Test: OTHER, SEE COMMENT Reason for NST Other: rule out labor Gestational Age Gestational Age in Weeks and Days: 38 Weeks and 3Days Test and Monitor Explained Test/Monitor Explained: Test Explained, Monitor Explained and Patient Verbalized Understanding Vital Signs Blood Pressure: 107/55 Pulse: 103 Temperature: 98.4 F NST Information Date on Monitor: 12/15/22 Time on Monitor: 14:14 Date off Monitor: 12/15/22 Time off Monitor: 14:47 Total Time on Monitor: 33 NST Interventions: PO Hydration Contraction Frequency: 0 NST Evaluation Patient States Movement: Present FHR Baseline: 145 Variability: Moderate 6-25 bpm Accelerations: 15x15 Decelerations: None NST Results: Reactive Note N/A NST Note Note: Bella Cortez is experiencing pelvic pressure and rectal pressure. She reports normal BMs. No contractions. Cervic 3.5 cms/70%. Signs of labor reviewed. She plans to stay at her father's house nearby. NST Reviewed and Verified by: Kell Rossi
[2022-12-15 15:21] VITALS: BP 107/55; PULSE 103; TEMP 36.9
[2022-12-15 15:32] LABS: COVID-19 PCR POSITIVE (Negative)
== END 2022-12-15 15:00 | disposition home or self-care (01) ==
LOC: BCD 10:16 → OBS 14:13
PROVIDERS: Visit Provider Advanced Practice Midwife
DX: O47.1 False labor at or after 37 completed weeks of gestation (principal); Z3A.38 38 weeks gestation of pregnancy; Z20.822 Contact with and (suspected) exposure to COVID-19
CPT/HCPCS: 59025; 87635

== ENCOUNTER 2022-12-17 03:17 | Observation (INO) | payer MEDICAID, SELFPAY ==
[2022-12-17 04:18] VITALS: BP 120/75; PULSE 127; RESP 18; TEMP 36.8; O2SAT 97
[2022-12-17 08:15] VITALS: BP 122/66; PULSE 107; RESP 16; TEMP 36.6; O2SAT 98
--- NOTE | 2022-12-17 09:40 | HPE_ITS ---
Date of service: 12/17/22 Time of Service: 04:00 Assessment and Plan Assessment and plan (1) False labor after 37 weeks of gestation without delivery: Status: Acute Assessment and plan: There was no evidence of active labor and Bella ervin was encouraged to rest and was a admitted to observation. Will consider therapeutic rest if she is unable to rest. Sleep was encouraged. OB-HPI Labor/Delivery History of Present Illness Reason for Visit: rule out Chief Complaint: Uterine Contractions. FADI Calculator Estimated Delivery Date Method Current WG Current Estimate 12/26/22 LMP (Certain) 38w 5d Other Estimates 12/30/22 Ultrasound #1 38w 1d Comments: Reyes reported painful uterine contractions at home and is here for labor rule out. History of Present Expected Delivery Route/Plan - CNM FOB/ - David Hernandez (3rd child together) Doesn't want to know gender (no circ if male) Interested in trying the tub, maybe waterbirth, liked nubain injection last time GBS negative Specific Issues/Plan 1. Known CF screen negative, declines cfDNA screening 2. Desires TL at 6-8 wks ; MD appt @ 30 wks. Consent signed 10/12/22. 3. Had GDM last , early oscnhss=000; repeat 133 4. Ceasar are unvaccinated - They have never had covid 4a. Covid infection 12/15/22. Symptoms started 12/10/22 5. size < dates noted @ 33 weeks, ultrasound @ 35 wks: EFW 14%ile and DARIO 8.5 cms PFSH All Active Problems (Updated 12/17/22 @ 09:44 by Kell Rossi CNM) False labor after 37 weeks of gestation without delivery (Acute) Fundal height low for dates (Acute) History of gestational diabetes in prior , currently (Acute) (Acute) Medical History (Updated 12/17/22 @ 09:44 by Kell Rossi CNM) ADHD (attention deficit hyperactivity disorder) (04/19/12) Cervical cancer screening Kidney pain Missed menses confirmed by positive urine test Routine gynecological examination Speech delay (04/19/12) IEP in place for speech/learning difficulties Family History Mother Mental disorder depression/anxiety Father Essential hypertension Hyperlipidemia Mental disorder depression/anxiety Diabetes Paternal Grandmother Diabetes Social History Smoking/Tobacco Use Status: Never Smoking risk assessment performed?: Yes Alcohol Intake: never Drug use: Never Substance use type: does not use Details: drinks occasionaly but not with pregencancy Seatbelt use: always Helmet use: Yes 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 Date GA/Weeks # Preg Succ Route Wgt Sex Labor Lgth Anesth esia Location Prov [facility] 09/25/18 37 No vaginal 7 lb 1 oz Male 6hrs 13 min. regional Lesa Johnson CNM 09/18/20 38 No vaginal 7 lb 3 oz Male 5 hrs 39 min local Lesa Johnson CNM Delivery Date: 09/25/18 Last Updated by: Negar Johnson IV sedation, MLE for prolonged and decel Creed Delivery Date: 09/18/20 Last Updated by: Negar Johnson Nml unmedicated Valdez Hernández Allergies and Home Medications Allergies Allergy/AdvReac Type Severity Reaction Status Date / Time No Known Allergies Allergy Verified 12/13/22 17:05 Home Medications Medication Instructions Recorded Confirmed Type prenat.vits,pollo,ftb-[id number] 1 tab PO DAILY 07/05/22 12/13/22 History magnesium oxide 200 mg PO DAILY #90 tabs 11/02/22 12/13/22 Rx pantoprazole 40 mg tablet,delayed 40 mg PO DAILY #30 tabs 11/02/22 12/13/22 Rx release (Protonix) hydroxyzine pamoate 50 mg capsule 50 mg PO BID PRN rest #20 caps 12/05/22 12/13/22 Rx (Vistaril) Exam Physical Exam Vital signs: Temp Pulse Resp BP Pulse Ox 97.9 F 107 H 16 122/66 98 12/17/22 08:15 12/17/22 08:15 12/17/22 08:15 12/17/22 08:15 12/17/22 08:15 Constitutional Constitutional: no acute distress Detailed Labor and Delivery Exam Dilation: 3 Effacement (%): 80 station: -1 Consistency: soft Laird Score: Cervical Points Exam 0 1 2 3 Dilation Closed 1-2cm 3-4 cm 5-6cm Effacement 0-30% 40-50% 60-70% 80% Consistency Firm Medium Soft Station -3 -2 -1,0 +1,+2 Position Posterior Mid Anterior Amniotic Membrane Status: Intact Monitor Mode: External Contraction Frequency(min): every 2-5 Contraction Duration(sec): 40-60 Contraction Intensity: Mild Fetus A Heart Rate Baseline: 130 Monitor Accelerations: 15 X 15 Monitor Decelerations: None Variability: Moderate (6-25 BPM) Categories: Category I Respiratory Exam Respiratory Exam: Normal Cardiovascular Exam Cardiovascular Exam: Normal Abdominal Exam Abdominal Exam: Normal Exam Exam: Normal Extremities Exam Extremities Exam: Normal Psychiatric Exam Psychiatric Exam: Abnormal Additional findings Additional findings: Flat affect and quiet responses to questions. Her mother is expressing desire for Risk Assessment Risk for Shoulder Dystocia Historical/Initial OB: NEGATIVE FOR: Pelvic Abnormality, Pre- BMI>30, Previous Shoulder Dystocia or Previous Macrosomia 40 Weeks: NEGATIVE FOR: EFW> 4500 gms, Maternal Weight Gain >40lb or Post Dates Delivery Plan @ 40 wks: NVD expected Risk for Pre-Eclampsia Date Initiated/Initials: not indicated jk Yes, if one or more: NEGATIVE FOR: Hx Pre-E/Gest HTN, Chronic HTN, Multiple Gestation, Pre-gestational DM, Renal Disease, Systemic Lupus or APA Syndrome Yes, if 2 or more: NEGATIVE FOR: Nulliparity, Age>= 35 yrs, >10yr btwn pregnancies, BMI>30, ethinicty, Mother/Sister w/ Pre-E or Previous IUGR Risk for Post- Hemorrhage Initial: NEGATIVE FOR: Multiple Gestation, Previous PPH, Known Clotting Deficiency, Grand Multiparity or Anticoagulation Counseled re: Active Management: Yes Date/Initials: 12/13/22 [facility] Risks Reviewed Risks Reviewed Upon Admission: Yes
[2022-12-17 10:27] VITALS: BP 122/66; PULSE 87; TEMP 36.4
--- NOTE | 2022-12-17 10:32 | W.PM.OBDISCH ---
Date of service: 12/17/22 Time of Service: 10:32 DS: Diagnosis Discharge Diagnosis (1) False labor after 37 weeks of gestation without delivery: Status: Acute Asessment and Plan: Bella Cortez has had frequent calls with complaints of contractions and has had frequent labor evaluations at the center in the past month with no evidence of active labor. Due to current ongoing induction of labor, I explained that an induction was not possible at this time. Due to gestation less than 39 weeks and no medical indication, I also explained that an induction is not indicated and may result in risks to the baby. She has a appointment at 39 weeks at [facility] and we will plan to discuss this further. NST was performed prior to discharge. (2) COVID-19 affecting in third trimester: Status: Acute Asessment and Plan: Cynthia reports that she has been having symptoms for 7 days. She reports that she has a stuffy nose but her symptoms are mild. Rest encouraged and RTO in 2 days at [facility]. Discharge Plan Disposition Patient Disposition: Home Condition: Good Discharge Details Reason For Visit: rule out Admit Date/Time: 12/17/22 03:17 Admit Provider: Kell Rossi Attending Provider: Kell Rossi Home Meds and New Rx's Prescriptions: No Action prenat.vits,pollo,grp-yptz-yooiv Tablet 1 tab PO DAILY pantoprazole [Protonix] 40 mg tablet,delayed release (DR/EC) 40 mg PO DAILY Qty: 30 3RF magnesium oxide 200 mg magnesium tablet 200 mg PO DAILY Qty: 90 2RF hydroxyzine pamoate [Vistaril] 50 mg capsule 50 mg PO BID PRN (Reason: rest) Qty: 20 0RF Discharge Instructions Activity:: Activity as Tolerated Equipment/Supplies:: No Equipment Needed Diet:: As Tolerated Discharge Orders Discharge Orders: Discharge Order (Routine); Ordered 12/17/22 Ordered By: Kell Rossi Discharge Data Discharge Date/Time-TO BE ENTERED AT DEPARTURE: 12/17/22 10:10 Discharge Comment: Pt left prior to receiving discharge paperwork OB:DS Summary Contraception Discussed Contraception Discussed: No, Status at Discharge Functional status at discharge: independent ambulation Overall status at discharge: patient is progressing back to baseline (mild irregular contractions noted on monitor) Mental Status: mental status grossly normal Speech and Movement: slowed movement (slowed speech) Mood: congruent mood Affect: blunted Exam Physical Exam Vital signs: Temp Pulse Resp BP Pulse Ox 97.9 F 107 H 16 122/66 98 12/17/22 08:15 12/17/22 08:15 12/17/22 08:15 12/17/22 08:15 12/17/22 08:15 Constitutional Constitutional: no acute distress Comments: Cynthia slept well and awoke and had breakfast. She is feeling discouraged that active labor has not occurred. Her mother was asking the nurses if she could have an induction of labor today. Exam Perineum: Normal Comments: SVE performed. Cervix is 3 cms, soft/80% effaced/ verex -1. This exam is unchanged from the previous exam i preformed 12/14/22. Signs of labor were reviewed and I encouraged her to return with ROM, bleeding or strong regular contractions. PFSH All Active Problems (Updated 12/17/22 @ 10:41 by Kell Rossi CNM) COVID-19 affecting in third trimester (Acute) False labor after 37 weeks of gestation without delivery (Acute) Fundal height low for dates (Acute) History of gestational diabetes in prior , currently (Acute) (Acute) Medical History (Updated 12/17/22 @ 10:41 by Kell Rossi CNM) ADHD (attention deficit hyperactivity disorder) (04/19/12) Cervical cancer screening Kidney pain Missed menses confirmed by positive urine test Routine gynecological examination Speech delay (04/19/12) IEP in place for speech/learning difficulties Family History Mother Mental disorder depression/anxiety Father Essential hypertension Hyperlipidemia Mental disorder depression/anxiety Diabetes Paternal Grandmother Diabetes Social History Smoking/Tobacco Use Status: Never Smoking risk assessment performed?: Yes Alcohol Intake: never Drug use: Never Substance use type: does not use Details: drinks occasionaly but not with pregencancy Seatbelt use: always Helmet use: Yes 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 Date GA/Weeks # Preg Succ Route Wgt Sex Labor Lgth Anesthesia Location Prov Complic 09/25/18 37 No vaginal 7 lb 1 oz Male 6hrs 13 min. regional Lesa Johnson CNM 09/18/20 38 No vaginal 7 lb 3 oz Male 5 hrs 39 min local Lesa Johnson CNM Delivery Date: 09/25/18 Last Updated by: Negar Johnson IV sedation, MLE for prolonged and decel Creed Delivery Date: 09/18/20 Last Updated by: Negar Johnson Nml unmedicated Valdez Chaves DS: Data Vitals/I&O Vitals and I&O: Vital Signs Temperature 97.9 F 12/17/22 08:15 Pulse 107 H 12/17/22 08:15 Pulse Rhythm Regular 12/17/22 04:18 Respiratory Rate 16 12/17/22 08:15 Blood Pressure 122/66 12/17/22 08:15 Blood Pressure Mean 84 12/17/22 08:15 Pulse Oximetry 98 12/17/22 08:15 Oxygen Delivery Method Room Air 12/17/22 04:18 Oxygen Flow Rate 0 12/17/22 04:18 Comment apical pulse is regular 12/17/22 04:18 Intake & Output 12/16/22 12/16/22 12/17/22 11:59 23:59 11:59 Other: Urine Color Yellow
[2022-12-17 10:45] VITALS: BP 122/66; PULSE 87; TEMP 36.4
--- NOTE | 2022-12-17 10:45 | W.OBNST ---
Date of service: 12/17/22 Time of Service: 10:30 NST Evaluation Reason for NST Reasons for Nonstress Test: FALSE LABOR Gestational Age Gestational Age in Weeks and Days: 38 Weeks and 5Days Test and Monitor Explained Test/Monitor Explained: Test Explained, Monitor Explained and Patient Verbalized Understanding Vital Signs Blood Pressure: 122/66 Pulse: 87 Temperature: 97.5 F Urine Results Urine Protein: Negative Urine Ketones: Negative Urine Glucose: Negative NST Information Date on Monitor: 12/17/22 Time on Monitor: 09:30 Date off Monitor: 12/17/22 Time off Monitor: 10:02 Total Time on Monitor: 32 Contraction Frequency: 7-8 NST Evaluation Patient States Movement: Present FHR Baseline: 145 Variability: Moderate 6-25 bpm Accelerations: 15x15 Decelerations: None NST Results: Reactive Note N/A NST Note Note: eBlla ervin was admitted for rule out labor. She fell asleep and when she awoke, no cervical change was noted and contractions are now mild and irregular. Reyes's mother requested induction and we had a discussion that induction of labor was not indicated at this time prior to 39 weeks. NST Reviewed and Verified by: Kell Rossi
== END 2022-12-17 10:10 | disposition home or self-care (01) ==
LOC: OBS 03:24
PROVIDERS: Admitting Provider Advanced Practice Midwife; Visit Provider Advanced Practice Midwife
DX: O47.1 False labor at or after 37 completed weeks of gestation (principal); O98.513 Other viral diseases complicating pregnancy, third trimester; U07.1 COVID-19; Z3A.38 38 weeks gestation of pregnancy
CPT/HCPCS: 59025; G0378

== ENCOUNTER 2022-12-18 10:31 | Inpatient (IN) | payer MEDICAID, SELFPAY ==
[2022-12-18] VITALS (12 sets, daily range): BP systolic 108–127; BP diastolic 56–80; PULSE 88–117; RESP 18; TEMP 36.3–36.7
--- NOTE | 2022-12-18 07:58 | W.PM.OBHPL1 ---
Date of service: 12/18/22 Time of Service: 08:30 Assessment and Plan Assessment and plan (1) Spontaneous onset of labor: Status: Acute Assessment and plan: Admit to observation at the Center. Comfort measures. Bella Cortez is recovering from Covid so covid test was not done today. Will reassess in 2-3 hours for cervical change. OB-HPI Labor/Delivery History of Present Illness Reason for Visit: NST Chief Complaint: Uterine Contractions. AFDI Calculator Estimated Delivery Date Method Current WG Current Estimate 12/26/22 LMP (Certain) 38w 6d Other Estimates 12/30/22 Ultrasound #1 38w 2d Comments: Bella Cortez called this morning at 0630 and reports regular uterine contractions. She hd been admitted with prodromal labor yesterday and was discharged after no cervical change. History of Present Expected Delivery Route/Plan - CNM FOB/ - David Hernandez (3rd child together) Doesn't want to know gender (no circ if male) Interested in trying the tub, maybe waterbirth, liked nubain injection last time GBS negative Specific Issues/Plan 1. Known CF screen negative, declines cfDNA screening 2. Desires TL at 6-8 wks ; MD appt @ 30 wks. Consent signed 10/12/22. 3. Had GDM last , early [id number]; repeat 133 4. Ceasar are unvaccinated - They have never had covid 4a. Covid infection 12/15/22. Symptoms started 12/10/22 5. size < dates noted @ 33 weeks, ultrasound @ 35 wks: EFW 14%ile and DARIO 8.5 cms PFSH All Active Problems (Updated 12/18/22 @ 07:59 by Kell Rossi CNM) Spontaneous onset of labor (Acute) COVID-19 affecting in third trimester (Acute) False labor after 37 weeks of gestation without delivery (Acute) Fundal height low for dates (Acute) History of gestational diabetes in prior , currently (Acute) (Acute) Medical History (Updated 12/18/22 @ 07:59 by Kell Rossi CNM) ADHD (attention deficit hyperactivity disorder) (04/19/12) Cervical cancer screening Kidney pain Missed menses confirmed by positive urine test Routine gynecological examination Speech delay (04/19/12) IEP in place for speech/learning difficulties Family History Mother Mental disorder depression/anxiety Father Essential hypertension Hyperlipidemia Mental disorder depression/anxiety Diabetes Paternal Grandmother Diabetes Social History Smoking/Tobacco Use Status: Never Smoking risk assessment performed?: Yes Alcohol Intake: never Drug use: Never Substance use type: does not use Details: drinks occasionaly but not with pregencancy Seatbelt use: always Helmet use: Yes 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 Date GA/Weeks # Preg Succ Route Wgt Sex Labor Lgth Anesthesia Location Prov Complic 09/25/18 37 No vaginal 7 lb 1 oz Male 6hrs 13 min. regional Lesa Johnson CNM 09/18/20 38 No vaginal 7 lb 3 oz Male 5 hrs 39 min local Lesa Johnson CNM Delivery Date: 09/25/18 Last Updated by: Negar Johnson IV sedation, MLE for prolonged and decel Creed Delivery Date: 09/18/20 Last Updated by: Negar Johnson Nml unmedicated [facility] Allergies and Home Medications Allergies Allergy/AdvReac Type Severity Reaction Status Date / Time No Known Allergies Allergy Verified 12/13/22 17:05 Home Medications Medication Instructions Recorded Confirmed Type prenat.vits,pollo,npt-umpp-zhyso 1 tab PO DAILY 07/05/22 12/13/22 History magnesium oxide 200 mg PO DAILY #90 tabs 11/02/22 12/13/22 Rx pantoprazole 40 mg tablet,delayed 40 mg PO DAILY #30 tabs 11/02/22 12/13/22 Rx release (Protonix) hydroxyzine pamoate 50 mg capsule 50 mg PO BID PRN rest #20 caps 12/05/22 12/13/22 Rx (Vistaril) Exam Constitutional Constitutional: no acute distress Detailed Labor and Delivery Exam Dilation: 4 Effacement (%): 100 station: -1 Cervix position: mid Consistency: soft Laird Score: Cervical Points Exam 0 1 2 3 Dilation Closed 1-2cm 3-4 cm 5-6cm Effacement 0-30% 40-50% 60-70% 80% Consistency Firm Medium Soft Station -3 -2 -1,0 +1,+2 Position Posterior Mid Anterior Amniotic Membrane Status: Intact Monitor Mode: None Contraction Frequency(min): every 2-5 Contraction Duration(sec): 60 Contraction Intensity: Mild/Moderate Fetus A Heart Rate Baseline: 130 Monitor Accelerations: 15 X 15 Monitor Decelerations: None Variability: Moderate (6-25 BPM) Presentation: Vertex Categories: Category I Respiratory Exam Respiratory Exam: Normal Cardiovascular Exam Cardiovascular Exam: Normal Exam Exam: Normal Extremities Exam Extremities Exam: Normal Skin Exam Skin Exam: Normal Psychiatric Exam Psychiatric Exam: Normal Risk Assessment Risk for Shoulder Dystocia Historical/Initial OB: NEGATIVE FOR: Pelvic Abnormality, Pre- BMI>30, Previous Shoulder Dystocia or Previous Macrosomia 40 Weeks: NEGATIVE FOR: EFW> 4500 gms, Maternal Weight Gain >40lb or Post Dates Delivery Plan @ 40 wks: NVD expected Risk for Pre-Eclampsia Date Initiated/Initials: not indicated jk Yes, if one or more: NEGATIVE FOR: Hx Pre-E/Gest HTN, Chronic HTN, Multiple Gestation, Pre-gestational DM, Renal Disease, Systemic Lupus or APA Syndrome Yes, if 2 or more: NEGATIVE FOR: Nulliparity, Age>= 35 yrs, >10yr btwn pregnancies, BMI>30, ethinicty, Mother/Sister w/ Pre-E or Previous IUGR Risk for Post- Hemorrhage Initial: NEGATIVE FOR: Multiple Gestation, Previous PPH, Known Clotting Deficiency, Grand Multiparity or Anticoagulation Counseled re: Active Management: Yes Date/Initials: 12/13/22 [facility] Risks Reviewed Risks Reviewed Upon Admission: Yes
[2022-12-18 10:16] LABS: HCT 37.7 % (36.0-46.0); HGB 12.5 g/dL (11.2-15.7); MCH 28.7 pg (27.0-33.0); MCHC 33.2 % (32.0-36.0); MCV 87 fL (80-95); MPV 11.1 fL (8.0-11.0); Platelet Count 341 10^3/uL (130-400); RBC 4.35 10^6/uL (3.93-5.22); RDW 12.4 % (11.7-14.6); RDW-SD 39.5 fL; WBC 19.62 10^3/uL (4.4-10.8)
--- NOTE | 2022-12-18 10:37 | W.PM.OBNL1 ---
Date of service: 12/18/22 Time of Service: 10:37 Pelvic Exam Dilation: 5 Effacement (%): 100 station: 0 Cervix Position: mid Contractions Contraction Frequency(min): every 3-4 min Contraction Duration(sec): 60 Intensity: Moderate/Strong Fetus A Monitor: Doppler Heart Rate Baseline: 130 Assessment and Plan Assessment and plan (1) Spontaneous onset of labor: Status: Acute Assessment and plan: nubain 5 mg SC. Anticipate . AROM offered and Reyes agrees with this plan. Objective Abnormal lab results 12/18/22 Range/Units 10:04 WBC 19.62 H (4.4-10.8) 10^3/uL MPV 11.1 H (8.0-11.0) fL Pulse BP 112 H 113/72 12/18/22 08:02 12/18/22 08:02 Laboratory Results WBC 19.62 10^3/uL (4.4-10.8) H 12/18/22 10:04 RBC 4.35 10^6/uL (3.93-5.22) 12/18/22 10:04 Hgb 12.5 g/dL (11.2-15.7) 12/18/22 10:04 Hct 37.7 % (36.0-46.0) 12/18/22 10:04 MCV 87 fL (80-95) 12/18/22 10:04 MCH 28.7 pg (27.0-33.0) 12/18/22 10:04 MCHC 33.2 % (32.0-36.0) 12/18/22 10:04 RDW 12.4 % (11.7-14.6) 12/18/22 10:04 Plt Count 341 10^3/uL (130-400) 12/18/22 10:04 MPV 11.1 fL (8.0-11.0) H 12/18/22 10:04 Patient ABO/Rh O Positive 12/18/22 10:04 Subjective Interval history since last seen: Reyes requests pain medication. She used nubain at her last delivery with good effect. Results Hemoglobin/Hematocrit: Hgb 12.5 g/dL (11.2-15.7) 12/18/22 10:04 Hct 37.7 % (36.0-46.0) 12/18/22 10:04 Abnormal Lab Findings: Abnormal Labs 12/18/22 10:04 WBC 19.62 H MPV 11.1 H
[2022-12-18] MEDS: Nalbuphine 10 MG/ML AMP 5 MG SC (10:44)
[2022-12-18] MEDS: Oxytocin 10 UNITS/ML VIAL IM (11:19)
--- NOTE | 2022-12-18 11:38 | W.OBDELIVERY ---
Date of service: 12/18/22 Time of Service: 11:38 OB Labor/ Delivery Information Baby A Delivery Delivery Method: Spontaneaous Presentation: Vertex Cephalic Position: Vertex Vertex Position: Left Occipital Anterior Cord Description-Baby A: 3 Vessels Cord Description Comment: very thick sections of whartons jelly including near the umbilicus Amniotic Fluid: Clear Estimated Blood Loss: 250 Delivery Outcome: Liveborn Infant Complications: tight nuchal cord. Transferred: Remains with Mother Note: FHTs 130s during first stage of labor. Bella ervin used the shower for comfort after AROM performed for mod. amount of clear fluid. She progressed rapidly to full dilation and moved to the bed where she delivered precipitously. FHTs 130 with doppler in second stage. Second stage huddle was not done due to precipitous delivery. Spontaneous delivery of female delivered in SALENA position. A tight nuchal cord was encountered and i was unable to slip it over the head so the baby was delivered using somersault technique and the tight cord was removed after delivery. The Baby was placed on mother's abdomen and dried and stimulated. She had a spontaneous cry. Cord was clamped and cut by christo valdivia's father. two sections of markedly thick whartons jelly noted. The placenta delivered spontaneously and appears to by intact with a three vessel cord. Pitocin 10 was administered prior to delivery of the placenta. The perineum was inspected and it was intact with a perineal abrasion which was not bleeding and did not require repair. Bella ervin does plan to breastfeed. After delivery, Mother and baby and father of the baby were stable and bonding well in the delivery room and there were no complications. Providers Nurse Hi Lift Operator: Kell Rossi Nurse: Riya Poon Nurse: Crystal Cassidy Labor/Delivery Information Number of Babies in Womb: 1 Steroids Given: None Reason Steroids Not Administered: N/A Group Beta Strep: Negative Antibiotics Administered: No Shoulder Dystocia: No Stages of Labor Onset of Labor Date: 12/18/22 Onset of Labor Time: 09:40 Complete Dilatation Date: 12/18/22 Complete Dilatation Time: 11:06 Labor - Stage 1 Duration: 1 hours and 26 minutes ROM Baby A: 12/18/22 ROM Baby A: 10:51 ROM Total Time- Baby A: [id number] Infant Delivery Date-Baby A: 12/18/22 Infant Delivery Time-Baby A: 11:12 Labor Stage 2 Duration: 6 minutes Placenta Delivery Date-Baby A: 12/18/22 Placenta Delivery Time-Baby A: 11:20 Labor-Stage 3 Duration: 8 minutes Total Length of Labor-Baby A: 1 hours and 32 minutes Placenta Status: Delivered Baby A Gender: Female Gestational Status: Early Term (37-38.6 wks) Gestational Age in Weeks/Days: 38 Weeks and 6 Days Length-Baby A: 19.5 in Score-1 Minute Interval(Baby A) Heart Rate-1 minute: 100 BPM or Greater Respiratory Effort- 1 minute: Slow Respiration/Weak Cry Muscle Tone-1 minute: Active Movement Reflex Response-1 minute: Prompt Response Color-1 minute: Pallor or Cyanosis Total Score-1 minute: 7 Score-5 Minute Interval(Baby A) Heart Rate- 5 minute: 100 BPM or Greater Respiratory Effort-5 minute: Spontaneous/Strong Cry Muscle Tone-5 minute: Active Movement Reflex Response-5 minute: Prompt Response Color-5 minute: [place]/No Cyanosis Total Score- 5 minute: 10
[2022-12-18] MEDS: Hamamelis Leaf/Glycerin 100 EACH BOX PR (12:21)
[2022-12-18] MEDS: Acetaminophen 325 MG TAB 650 MG PO ×3 (12:21→22:12)
[2022-12-18] MEDS: Dibucaine 1% 28 GM TUBE TP (12:21)
[2022-12-18] MEDS: Ibuprofen 600 MG TAB PO (23:58)
[2022-12-19 00:08] VITALS: BP 106/65; PULSE 92; RESP 18; TEMP 36.5
[2022-12-19] MEDS: Acetaminophen 325 MG TAB 650 MG PO ×2 (05:30→10:21)
[2022-12-19 09:04] VITALS: BP 109/69; PULSE 96; RESP 16; TEMP 36.8; O2SAT 97
[2022-12-19] MEDS: Ibuprofen 600 MG TAB PO (10:21)
--- NOTE | 2022-12-19 16:39 | W.PM.OBPNV1 ---
Date of service: 12/19/22 Time of Service: 16:39 Assessment and Plan Assessment and plan (1) Term of female : Status: Acute Assessment and plan: Caring for baby independently. Pain is managed well with oral analgesics. Voiding without difficulty. well. A - stable mother and baby , Post day 1, with possibility of ambiguous genitalia P - Discharge to home tomorrow. Routine post instructions. [facility] Subjective Subjective Interval history: aniyah feels well. No concerns Patient comments: No complaints Patient's Mood: appropriate baby status: Bottle feeding well (switched from breast to bottle) [place] feeding status: Bottle Feeding Narrative: Baby is having a workup with pediatrics due to enlarged clitoris and rule out ambiguous genitalia. Adrenal testing ongoing Exam Physical Exam Vital signs: Temp Pulse Resp BP Pulse Ox 98.2 F 96 H 16 109/69 97 12/19/22 09:04 12/19/22 09:04 12/19/22 09:04 12/19/22 09:04 12/19/22 09:04 Respiratory Exam Respiratory Exam: Normal Cardiovascular Exam Cardiovascular Exam: Normal Fundal Exam Fundus: Below Umbilicus and Firm Exam Comments: intact perineum Extremities Exam Extremity Exam: Normal Skin Exam Skin Exam: Normal Psychiatric Exam Psychiatric Exam: Normal Results Hemoglobin/Hematocrit: Hgb 12.5 g/dL (11.2-15.7) 12/18/22 10:04 Hct 37.7 % (36.0-46.0) 12/18/22 10:04 Abnormal Lab Findings: Abnormal Labs 12/18/22 10:04 WBC 19.62 H MPV 11.1 H
[2022-12-19 23:00] VITALS: BP 110/70; PULSE 77; RESP 18; TEMP 36.6
[2022-12-20] MEDS: Acetaminophen 325 MG TAB 650 MG PO (00:03)
[2022-12-20] MEDS: Ibuprofen 600 MG TAB PO (00:04)
[2022-12-20 08:00] VITALS: BP 104/58; PULSE 77; RESP 14; TEMP 37
--- NOTE | 2022-12-20 09:42 | W.PM.OBPNV1 ---
Date of service: 12/20/22 Time of Service: 09:43 Assessment and Plan Assessment and plan (1) Term of female : Status: Acute Assessment and plan: A: nml PPD#2 Satisfied with experience P: Discharge today, will be boarder status if infant not discharged Plans Tubal ligation @ 8 wks F/up at 2 & 6 wks Written instructions reviewed and given to pt Subjective Subjective Patient comments: No complaints, Pain well controlled, Tolerating diet and Bowel Movement Patient's Mood: happy baby status: Doing well, Bottle feeding well, Rooming in and Strong Bonding Observed feeding status: Exclusively formula feeding Exam Physical Exam Vital signs: Temp Pulse Resp BP Pulse Ox 98 F 77 18 110/70 97 12/19/22 23:00 12/19/22 23:00 12/19/22 23:00 12/19/22 23:00 12/19/22 09:04 Vital Signs Reviewed: Yes Constitutional Constitutional: no acute distress, thin and cooperative HEENT Exam HEENT Exam: Normal Neck Exam Neck Exam: Normal Breast Exam Bilateral: Breast Exam: Normal and Soft Nipple Exam: Normal and Uninjured Respiratory Exam Respiratory Exam: Normal Cardiovascular Exam Cardiovascular Exam: Normal Abdominal Exam Abdomen: Other (soft, nontender) Fundal Exam Fundus: Below Umbilicus and Firm Rectal Exam Rectal Exam: Not Done Exam Patient deferred: external exam Extremities Exam Extremity Exam: Normal, Full ROM, Normal Capillary Refill and Warm to Touch Back/Spine/Pelvis Exam Back Exam: Normal Skin Exam Skin Exam: Normal Neurological Exam Neurological Exam: Normal Psychiatric Exam Psychiatric Exam: Normal
--- NOTE | 2022-12-20 09:50 | DSE_ITS ---
Date of service: 12/20/22 Time of Service: 09:51 DS: Diagnosis Discharge Diagnosis (1) Term of female : Status: Acute Discharge Plan Disposition Patient Disposition: Home Condition: Good Discharge Details Reason For Visit: Rule Out Labor Admit Date/Time: 12/18/22 10:31 Admit Provider: Kell Rossi Attending Provider: Kell Rossi Primary Care Provider: Unknown,Unknown Hospital Course Hospital Course: , nml course Home Meds and New Rx's Prescriptions: No Action prenat.vits,pollo,[id number] Tablet 1 tab PO DAILY pantoprazole [Protonix] 40 mg tablet,delayed release (DR/EC) 40 mg PO DAILY Qty: 30 3RF magnesium oxide 200 mg magnesium tablet 200 mg PO DAILY Qty: 90 2RF hydroxyzine pamoate [Vistaril] 50 mg capsule 50 mg PO BID PRN (Reason: rest) Qty: 20 0RF Discharge Instructions Stand Alone Forms: BC Post Vaginal Deliver Activity:: Activity as Tolerated Equipment/Supplies:: No Equipment Needed Diet:: Normal Diet OB:DS Summary Summary Vaginal Delivery Method: Spontaneaous Episiotomy Description: None Laceration Description: None Laceration Extension: N/A Contraception Discussed Contraception Discussed: Yes Contraceptive Plan: Tubal Ligation, [place] Infant Gender-Baby A: Female weight: 6 lb 13.526 oz Status at Discharge Functional status at discharge: independent ambulation Overall status at discharge: patient is progressing back to baseline Mental Status: mental status grossly normal Speech and Movement: speech and movement normal and speech clear Mood: congruent mood Affect: normal affect Exam Physical Exam Vital signs: Temp Pulse Resp BP Pulse Ox 98 F 77 18 110/70 97 12/19/22 23:00 12/19/22 23:00 12/19/22 23:00 12/19/22 23:00 12/19/22 09:04 Constitutional Constitutional: no acute distress, thin and cooperative HEENT Exam HEENT Exam: Normal Neck Exam Neck Exam: Normal Breast Exam Bilateral: Breast Exam: Normal and Soft Respiratory Exam Respiratory Exam: Normal Cardiovascular Exam Cardiovascular Exam: Normal Abdominal Exam Abdomen: Other (soft, nontender) Fundal Exam Fundus: Below Umbilicus and Firm Rectal Exam Rectal Exam: Not Done Exam Patient deferred: external exam Extremities Exam Extremity Exam: Normal, Full ROM, Normal Capillary Refill and Warm to Touch Back/Spine/Pelvis Exam Back Exam: Normal Skin Exam Skin Exam: Normal Neurological Exam Neurological Exam: Normal Psychiatric Exam Psychiatric Exam: Normal PFSH All Active Problems (Updated 12/19/22 @ 16:43 by Kell Rossi CNM) Term of female (Acute) Medical History (Updated 12/19/22 @ 16:43 by Kell Rossi CNM) ADHD (attention deficit hyperactivity disorder) (04/19/12) Cervical cancer screening Speech delay (04/19/12) IEP in place for speech/learning difficulties Family History Mother Mental disorder depression/anxiety Father Essential hypertension Hyperlipidemia Mental disorder depression/anxiety Diabetes Paternal Grandmother Diabetes Social History Smoking/Tobacco Use Status: Never Smoking risk assessment performed?: Yes Alcohol Intake: never Drug use: Never Substance use type: does not use Details: drinks occasionaly but not with pregencancy Seatbelt use: always Helmet use: Yes Drive intox or ride w/intox bulk tank driver: No Working smoke detector in home: Yes Fire extinguisher in home: Yes Carbon monox detector in home: Yes Firearms in home: Yes Firearms unloaded and locked: Yes Victim of physical abuse: No Victim of emotional abuse: No Victim of sexual abuse: No History History 3 Para 2 Hx # Term Pregnancies 2 Multiple births 0 Hx # Pregnancies 0 Ectopic pregnancies 0 AB induced 0 Hx Number of Living Children 2 AB spontaneous 0 Past Pregnancies Del. Date GA/Weeks # Preg Succ Route Wgt Sex Labor Lgth Anesth esia Location Prov [facility] 09/25/18 37 No vaginal 7 lb 1 oz Male 6hrs 13 min. regional Lesa Johnson CNM 09/18/20 38 No vaginal 7 lb 3 oz Male 5 hrs 39 min local Lesa Johnson CNM Delivery Date: 09/25/18 Last Updated by: Negar Johnson IV sedation, MLE for prolonged and decel Creed Delivery Date: 09/18/20 Last Updated by: Negar Johnson Nml unmedicated Valdez Chaves DS: Data Vitals/I&O Vitals and I&O: Vital Signs Temperature 98 F 12/19/22 23:00 Pulse 77 12/19/22 23:00 Pulse Rhythm Regular 12/19/22 23:00 Respiratory Rate 18 12/19/22 23:00 Blood Pressure 110/70 12/19/22 23:00 Blood Pressure Mean 83 12/19/22 23:00 Pulse Oximetry 97 12/19/22 09:04 Pain Level 4 12/20/22 00:04 Intake & Output 12/19/22 12/19/22 12/20/22 11:59 23:59 11:59 Other: Urine Color Yellow
== END 2022-12-20 15:00 | disposition home or self-care (01) | DRG 805 ==
LOC: OBS 14:36 → BCD 12-20 08:14
PROVIDERS: Admitting Provider Advanced Practice Midwife; Visit Provider Advanced Practice Midwife
DX: O98.52 Other viral diseases complicating childbirth (principal); U07.1 COVID-19; Z37.0 Single live birth; O62.3 Precipitate labor; O69.1XX0 Labor and delivery complicated by cord around neck, with compression, not applicable or unspecified; Z3A.38 38 weeks gestation of pregnancy
CPT/HCPCS: 36415; 85027; 86850; 86900; 86901; J2590; J3490

== ENCOUNTER 2023-03-07 03:51 | Outpatient (CLI) | payer MEDICAID, SELFPAY ==
[2023-03-07 10:27] LABS: HCT 38.2 % (36.0-46.0); HGB 12.3 g/dL (11.2-15.7); MCH 27.9 pg (27.0-33.0); MCHC 32.2 % (32.0-36.0); MCV 87 fL (80-95); MPV 10.9 fL (8.0-11.0); Platelet Count 304 10^3/uL (130-400); RBC 4.41 10^6/uL (3.93-5.22); RDW 14.1 % (11.7-14.6); RDW-SD 45.1 fL; WBC 6.92 10^3/uL (4.4-10.8)
== END 2023-03-07 03:52 | disposition home or self-care (01) ==
LOC: LBO 03:51
PROVIDERS: Visit Provider Obstetrics & Gynecology
DX: Z30.09 Encounter for other general counseling and advice on contraception (principal); Z01.818 Encounter for other preprocedural examination; Z01.812 Encounter for preprocedural laboratory examination
CPT/HCPCS: 36415; 85027; 86850; 86900; 86901

== ENCOUNTER 2023-03-07 12:52 | Outpatient (REF) | payer MEDICAID, SELFPAY ==
[2023-03-07 11:56] LABS: Source Nasal/Nares
[2023-03-07 13:08] LABS: COVID-19 PCR Negative (Negative)
== END 2023-03-07 12:53 | disposition home or self-care (01) ==
LOC: LBN 12:52
PROVIDERS: Visit Provider Obstetrics & Gynecology
DX: Z20.822 Contact with and (suspected) exposure to COVID-19 (principal); Z01.818 Encounter for other preprocedural examination
CPT/HCPCS: 87635

== ENCOUNTER 2023-03-09 09:39 | Day surgery (SDC) | payer MEDICAID, SELFPAY ==
[2023-03-09] VITALS (9 sets, daily range): BP systolic 92–125; BP diastolic 44–92; PULSE 63–100; RESP 15–17; TEMP 36.3–36.9; O2SAT 96–100; BMI 22.3
[2023-03-09] MEDS: Lactated Ringers 1,000 ML 125 ML IV (10:14)
--- NOTE | 2023-03-09 10:46 | ANES.PREOP_ITS ---
General Info Date of Service Date Performed: 03/09/23 Height: 5 ft Weight: 51.8 kg Body Mass Index (BMI): 22.3 Surgical Procedure: Operation Date: 03/09/23 10:40 Proposed Procedure Side Surgeon p Salpingectomy Laparoscopic Bilateral Lisa Steve DO Meds Allergies and Home Medications Allergies Allergy/AdvReac Type Severity Reaction Status Date / Time No Known Allergies Allergy Verified 03/09/23 09:58 Home Medication Medication Instructions Recorded Unknown [No Known Home Meds] 03/07/23 Current Visit Medications: Current Medications Generic Name Dose Route Start Last Admin Trade Name Freq PRN Reason Stop Dose Admin Ringer's Solution 1,000 mls @ 125 mls/hr 03/09/23 06:00 03/09/23 10:14 IV 04/07/23 23:59 125 mls/hr INFUSION SEAN Administration IV Miscellaneous Supplies 1 each 03/09/23 06:00 Iv Access IV 04/07/23 23:59 DIRECTED SEAN Sodium Chloride 0 ml 03/09/23 06:00 Normal Saline Flush 10 Ml Syr IV 04/07/23 23:59 PRN PRN Sodium Chloride 0 ml 03/09/23 06:00 Normal Saline 10 Ml Vial IJ 04/07/23 23:59 DIRECTED PRN Sterile Water 0 ml 03/09/23 06:00 Water,Injection,Sterile 10 Ml Vial IJ 04/07/23 23:59 DIRECTED PRN PFSH Active Problems Active Problems: Problem Status Onset Code Contraceptive management Z30.9 Medical History Medical History ADHD (attention deficit hyperactivity disorder) (04/19/12) Cervical cancer screening Speech delay (04/19/12) IEP in place for speech/learning difficulties Tobacco Smoking/Tobacco Use Status: Never Alcohol Alcohol Intake: former Substance Use Substance use: Never Substance use type: does not use Prental History History 3 Para 3 Hx # Term Pregnancies 3 Multiple births 0 Hx # Pregnancies 0 Ectopic pregnancies 0 AB induced 0 Hx Number of Living Children 3 AB spontaneous 0 Past Pregnancies Del. Date GA/Weeks # Preg Succ Route Wgt Sex Labor Lgth Anesth esia Location Prov Complic 09/25/18 37 No vaginal 3203.496 g Male 6hrs 13 min. regional Lesa Johnson CNM 09/18/20 38 No vaginal 3260.195 g Male 5 hrs 39 min local Lesa Johnson CNM 12/18/22 38 No Yes vaginal Female 4 hours local nick feldman CNM Delivery Date: 09/25/18 Last Updated by: Negar Johnson IV sedation, MLE for prolonged and decel Creed Delivery Date: 09/18/20 Last Updated by: Negar Johnson Nml unmedicated Valdez Chaves Delivery Date: 12/18/22 Last Updated by: Kell Rossi CNM Precipitous delivery. Possibility of ambiguous genitalia, Alyssa Dorsey. Tight nuchal cord. Vital Signs and Lab Results Vital Signs Most Recent Vital Signs in EMR: Most Recent Vital Signs Temp Pulse Resp BP Pulse Ox 36.8 C 81 17 123/71 100 03/09/23 09:50 03/09/23 09:50 03/09/23 09:50 03/09/23 09:50 03/09/23 09:50 Point of Care Results Point of Care Results: POC- Test(urine) Negative 03/09/23 09:50 Lab Results Blood Type / Crossmatch: Patient ABO/Rh O Positive 03/07/23 Antibody Screen NEGATIVE 03/07/23 Complete Blood Count: White Blood Count 6.92 10^3/uL (4.4-10.8) 03/07/23 10:18 Red Blood Count 4.41 10^6/uL (3.93-5.22) 03/07/23 10:18 Hemoglobin 12.3 g/dL (11.2-15.7) 03/07/23 10:18 Hematocrit 38.2 % (36.0-46.0) 03/07/23 10:18 Platelet Count 304 10^3/uL (130-400) 03/07/23 10:18 Complete Metabolic Panel: No Data to Display Liver Function Panel: No Data to Display Coagulation Panel: No Data to Display Cardiac Panel: No Data to Display Arterial Blood Gas: No Data to Display Venous Blood Gas: No Data to Display Pancreas Panel: No Data to Display Thyroid Panel: No Data to Display Infectious Disease: Coronavirus (COVID-19)(PCR) Negative (Negative) 03/07/23 10:00 Coronavirus 2019 Source Nasal/Nares 03/07/23 10:00 Blood Cultures: No Data to Display Toxicology Panel: No Data to Display Panel: No Data to Display Anesthesia Assessment and Plan Anesthesia History Personal History: No History of General Anesthesia Family History: No Family History of Anesthesia Complications Exercise Tolerance Exercise Tolerance: Metabolic Equivalents>4 Pertinent Negatives Pertinent Negatives: No Symptoms of GERD, No Major Cardiovascular Symptoms or Complaints, No Major Pulmonary Symptoms or Complaints and No History of CVA/TIA Cardiac & Pulmonary Exam Cardiac Exam: Normal S1/S2 Heart Sounds Pulmonary Exam: Clear Bilateral Breath Sounds Implantable Cardiac Device Does patient have a Pacemaker or an ICD?: No Airway Exam Known Difficult Airway: No Mallampati Class: 2 Mouth Opening: Normal (> 3cm) Thyromental Distance: Greater than 3 cm Neck Range of Motion: Full ROM Neck Circumference: Normal Teeth Condition: Normal Dentition ASA Classification ASA Score: ASA 2 Emergency Case?: No NPO Status NPO Status: NPO Clears >2 hours, Solids >8 hours Status Status: Negative HCG Anesthesia Plan Resuscitation Status: Full Code Anesthesia Technique: General Anesthesia Airway Planned: Endotracheal Tube Monitors Used: Standard Monitors
--- NOTE | 2023-03-09 12:32 | FALL_PTH ---
PATIENT: Reyes Hernandez LOC: [facility] U#:[id number] AGE/SX: 22/F ROOM: RE03/09/[address]: Lisa Steve DO : 2000 BED: DIS: 03/09/2023 SPEC #: [id number] RECD: 03/09/23 17:39 STATUS: LISA RE #: [id number] IMMANUEL: 03/09/23 12:[address]: Lisa Steve DEPT: Surgical Specimen RECD BY: Yumiko Downs ENTERED: 03/09/23 17:40 SP TYPE: Fall OTHR DR: None Tissues: 1 - FALLOPIAN TUBE (STERILIZATION) 2 - FALLOPIAN TUBE (STERILIZATION) Procedures: GROSS AND MICRO LEVEL 2 Comments: [id number]
[2023-03-09] MEDS: Bupivacaine 0.25% Pres-Free 30 ML VIAL (12:43)
--- NOTE | 2023-03-09 12:51 | ROE_ITS ---
Date of service: 03/09/23 Time of Service: 12:51 Operative Note Operative Note DATE OF PROCEDURE: 03/09/23 PRE-OP DIAGNOSIS: Undesired fertility POST-OP DIAGNOSIS: same PROCEDURE: Laparoscopic bilateral salpingectomy SURGEON: Lisa Steve ASSISTING SURGEON: Muriel Marrero ANESTHESIA TYPE: Local By Surgeon and General LMA/ETT Refer to Anesthesia Record ESTIMATED BLOOD LOSS: 5 PATHOLOGY: other (1. Left fallopian tube 2. Right fallopian tube) COMPLICATIONS: None Patient was transported to: PACU Patient's condition: stable Indications: 3 para 3 with undesired fertility Findings: Normal-appearing tubes, ovaries, uterus. No intra-abdominal or pelvic pathology noted. Procedure Description: Patient is a 22-year-old 3 para 3 who has undesired fertility. She was counseled about long and short-term reversible contraceptive therapy and requests definitive sterilization. The risk benefits and alternatives of tubal removal for contraception and risk reduction were explained to the patient in full informed consent was obtained. She understands the risk of infection, bleeding, injury to surrounding organs, risk of anesthesia, small but present risk of failure with an increased risk of ectopic . She is taken the operating suite with an IV running where she is placed in the dorsal supine position and endotracheal intubation performed for the administration of general anesthesia with ease. She was then placed in the modified dorsolithotomy position in [facility] stirrups and prepped and draped in the usual sterile fashion. Exam under anesthesia revealed a uterus that was midline and mobile. Sinha catheter was drained for approximately 100 cc of clear yellow urine. Speculum was inserted into the vaginal vault and a single- tooth tenaculum used to grasp the anterior lip of the cervix. A [employer] uterine manipulator was placed for uterine manipulation. Tenaculum and speculum were then removed and attention was returned to the abdomen. After infiltration with quarter percent Marcaine a small infraumbilical skin incision was made. The anterior abdominal wall was elevated with sharp towel clips and a varies needle inserted directly. With a maximum pressure of 15 mmHg, CO2 gas was used to create a pneumoperitoneum. At this point, a bladeless 12 mm Optiview trocar was placed under direct visualization. The abdomen was inspected and found to be free of disease and atraumatic. A second and third left and right lower quadrant trocar site were placed with a 5 mm trocar under direct visualization, after infiltration of quarter percent Marcaine. At this point the uterus was elevated. Left fallopian tube was identified followed out to the fimbriated ends. The left fallopian tube was cautery transected and removed from the abdomen through the 12 mm port. A similar procedure was carried out on the right fallopian tube. At this point the incision sites were reinspected and noted to be completely hemostatic. This completed the procedure. Pneumoperitoneum was released, trocars removed under direct visualization. The infraumbilical fascial incision was closed using 0 Vicryl suture in a simple interrupted fashion and the skin edges were reapproximated with 4-0 undyed Monocryl and Steri-Strips and sterile dressings were placed. Hulka uterine manipulator was then removed and the patient was returned to the dorsal supine position when she awoke from anesthesia with ease. She was taken to the postanesthesia care unit in stable condition. Findings: Normal tubes, ovaries, uterus Locations: None apparent Pathology: 1. Left fallopian tube 2. Right fallopian tube Fluids: Crystalloid per anesthesia
[2023-03-09] MEDS: Normal Saline 10 ML VIAL IJ (13:30)
[2023-03-09] MEDS: HYDROmorphone 2 MG/ML SYR IVP (13:30)
--- NOTE | 2023-03-09 14:32 | W.ANESPOSTOP ---
Postoperative Evaluation Date, Time and Location Date Performed: 03/09/23 Time Performed: 14:32 Patient Location: PACU Vital Signs Most Recent Imported Vital Signs: Most Recent Vital Signs Temp Pulse Resp BP Pulse Ox 36.3 C L 73 16 107/62 99 03/09/23 14:05 03/09/23 14:05 03/09/23 14:05 03/09/23 14:05 03/09/23 14:05 Pain Score Most Recent Pain Score: Most Recent Pain Score Pain Level 5 03/09/23 14:05 Assessment Mental Status: Awake (Alert & Oriented to Patient Baseline) Airway and Respiratory Function: Patent airway with normal (patient baseline) respiratory exam Cardiovascular Function: Hemodynamically Stable Hydration Status: Adequately Hydrated Nausea & Vomiting: No Nausea or Vomiting Pain: Pain is tolerable per patient Peripheral Nerve Block: Patient did not receive a nerve block Postoperative Comments:: Seen earlier today in PACU. All questions answered, patient appropriate for discharge.
== END 2023-03-09 15:05 | disposition home or self-care (01) ==
PROVIDERS: Visit Provider Obstetrics & Gynecology
PROC: (CPT 58661; principal; 2023-03-09 10:30)
DX: Z30.2 Encounter for sterilization (principal)
CPT/HCPCS: 58661; 81025; 88302; J0131; J1170; J1885; J2001; J2250; J2405

== ENCOUNTER 2024-02-23 14:23 | Outpatient (REF) | payer MEDICAID, SELFPAY ==
--- NOTE | 2024-02-23 13:15 | PAPFT_PTH ---
PATIENT: Reyes Hernandez LOC: [facility] U#:[id number] AGE/SX: 23/F ROOM: RE02/23/[address]: Kell Aleman CNM : 2000 BED: DIS: 02/23/2024 SPEC #: [id number] RECD: 02/26/24 13:35 STATUS: LISA REQ #: [id number] IMMANUEL: 02/23/24 13:[address]: Kell Aleman DEPT: [facility] Cytology RECD BY: Yumiko Downs ENTERED: 02/26/24 13:35 SP TYPE: PAPFT OTHR DR: Unknown,Unknown Tissues: 1 - CX/ENDOCX FOR PAP SMEARS Procedures: PAP THIN PREP/UVM Screening HPV DNA PROBE Comments: [id number]
== END 2024-02-23 14:24 | disposition home or self-care (01) ==
LOC: LBN 14:23
PROVIDERS: Visit Provider Advanced Practice Midwife
DX: Z12.4 Encounter for screening for malignant neoplasm of cervix (principal); Z11.51 Encounter for screening for human papillomavirus (HPV); Z01.419 Encounter for gynecological examination (general) (routine) without abnormal findings
CPT/HCPCS: 88142; 87624